=== PATIENT | female | born 1970 | race American Indian/Alaskan Native ===

== ENCOUNTER 2019-06-29 22:05 | Emergency (ER) | payer SELFPAY ==
--- NOTE | 2019-06-29 22:28 | Event Note ---
ED Screening Note Date of service: 06/29/19 Time: 22:24 ED Screening Note: 49 y o female presents with left flank pain and chest pain x 2 hours ago denies f/dysuria/v/diar This initial assessment/diagnostic orders/clinical plan/treatment(s) is/are subject to change based on patients health status, clinical progression and re- assessment by fellow clinical providers in the ED. Further treatment and workup at subsequent clinical providers discretion. Patient/guardian urged not to elope from the ED as their condition may be serious if not clinically assessed and managed. Initial orders include: ua, cbc,bmp, ct abd
[2019-06-29] MEDS ORDERED: MORPHINE IV ONE ×2 (22:54→23:30)
[2019-06-29] MEDS ORDERED: ZOFRAN IV ONE ×2 (22:54→23:30)
[2019-06-29 23:08] LABS: Alanine Aminotransferase 20 units/L (7-56); Albumin 3.5 g/dL (3.9-5); BUN/Creatinine Ratio 12; Blood Urea Nitrogen 12 mg/dL (7-17); Hemolysis Index 2
[2019-06-29] MEDS ORDERED: PEPCID IV ONE (23:30)
[2019-06-29] MEDS ORDERED: ALUM-MAG HYDROX-SIMETH 200-200-20MG/5ML PO ONE (23:30)
--- NOTE | 2019-06-29 23:34 | Emergency Department Report ---
ED Abdominal Pain HPI - General Chief Complaint: Chest Pain Stated Complaint: CHEST AND BACK PAIN Time Seen by Provider: 06/29/19 22:24 Source: patient Mode of arrival: Ambulatory Limitations: No Limitations - History of Present Illness Initial Comments: Mrs. Allred is a 49-year-old female with history of severe obesity who presents with epigastric left flank pain gradual onset 7 PM. SHe has vomiting and diarrhea. She is concerned for foodpoisoning after eating and a local buffet today. She also had transient nondescript chest pain which has resolved. She denies shortness of breath. No other sick contacts. No other contacts with sim ilar symptoms. No history of hypertension, diabetes mellitus, dyslipidemia, tobacco abuse. No family history of heart disease. MD Complaint: abdominal pain -: Gradual, hour(s) (4) Location: diffuse, epigastric, L flank Severity scale (0 -10): 10 Quality: burning Consistency: constant Improves With: nothing Worsens With: nothing Context: possible food poisoning Associated Symptoms: nausea, vomiting, diarrhea - Related Data Previous Rx's Medication Instructions Recorded Last Taken Type Ibuprofen [Motrin 800 MG tab] 800 mg PO Q8HR PRN #15 tablet 06/30/19 Unknown Rx Tamsulosin [Flomax] 0.4 mg PO QDAY #5 cap 06/30/19 Unknown Rx oxyCODONE /ACETAMINOPHEN [Percocet 1 tab PO Q6HR PRN #10 tablet 06/30/19 Unknown Rx 5/325] Allergies Allergy/AdvReac Type Severity Reaction Status Date / Time No Known Allergies Allergy Unverified 06/29/19 22:11 ED Review of Systems ROS: Stated complaint: CHEST AND BACK PAIN Other details as noted in HPI Comment: All other systems reviewed and negative Constitutional: denies: fever, malaise Cardiovascular: chest pain Gastrointestinal: abdominal pain, nausea, vomiting, diarrhea ED Past Medical Hx - Past Medical History Previous Medical History?: Yes Additional medical history: Morbid obesity - Surgical History Past Surgical History?: Yes Hx Appendectomy: Yes (September 2018) - Social History Smoking Status: Never Smoker Substance Use Type: None - Medications Home Medications: Home Medications Medication Instructions Recorded Confirmed Last Taken Type Ibuprofen [Motrin 800 MG tab] 800 mg PO Q8HR PRN #15 tablet 06/30/19 Unknown Rx Tamsulosin [Flomax] 0.4 mg PO QDAY #5 cap 06/30/19 Unknown Rx oxyCODONE /ACETAMINOPHEN [Percocet 1 tab PO Q6HR PRN #10 tablet 06/30/19 Unknown Rx 5/325] ED Physical Exam - General Limitations: No Limitations General appearance: alert, other (appears in severe pain with active vomiting) - Head Head exam: Present: atraumatic, normocephalic - Eye Eye exam: Present: normal appearance - ENT ENT exam: Present: mucous membranes moist - Neck Neck exam: Present: normal inspection, full ROM - Respiratory Respiratory exam: Present: normal lung sounds bilaterally. Absent: respiratory distress, wheezes, rales, rhonchi - Cardiovascular Cardiovascular Exam: Present: regular rate, normal rhythm, normal heart sounds. Absent: systolic murmur, diastolic murmur, rubs, gallop - GI/Abdominal GI/Abdominal exam: Present: soft, normal bowel sounds. Absent: distended, tenderness, guarding, rebound - Extremities Exam Extremities exam: Present: normal inspection - Back Exam Back exam: Present: normal inspection - Neurological Exam Neurological exam: Present: alert, oriented X3 - Psychiatric Psychiatric exam: Present: normal affect, normal mood - Skin Skin exam: Present: warm, dry, intact, normal color. Absent: rash ED Course Vital Signs 06/29/19 06/29/19 06/29/19 22:11 22:25 22:54 Temperature 98 F Pulse Rate 74 74 Respiratory 20 20 19 Rate Blood Pressure 178/96 Blood Pressure 178/96 [Left] O2 Sat by Pulse 100 100 98 Oximetry 06/29/19 23:27 Temperature 98.1 F Pulse Rate 72 Respiratory 19 Rate Blood Pressure Blood Pressure 158/86 [Left] O2 Sat by Pulse 98 Oximetry ED Medical Decision Making - Lab Data Result diagrams: 06/29/19 22:31 06/29/19 22:31 - Radiology Data Radiology results: report reviewed 2 mm left distal ureteral calculus according to CT radiology report - Medical Decision Making Medicine and presents with severe pain left flank due to 2 mm distal ureteral calculus. Pain controlled with multiple doses of analgesia. She also received IV antiemetic and IV fluid. I provided extensive verbal and written education regarding kidney stones. This is patient's first instance of renal colic. She is otherwise in good health. No indication of infection. No signs of SIRS/Sepsis. I have prescribed Percocet, ibuprofen, Flomax. She was provided urine strainer. Referred to urologist for f/u. Critical care attestation.: If time is entered above; I have spent that time in minutes in the direct care of this critically ill patient, excluding procedure time. ED Disposition Clinical Impression: Kidney stone on left side, Renal colic on left side, Acute flank pain Disposition: TO HOME OR SELFCARE Is pt being admited?: No Does the pt Need Aspirin: No Condition: Stable Instructions: Kidney Stones (ED) Prescriptions: Tamsulosin [Flomax] 0.4 mg PO QDAY #5 cap Ibuprofen [Motrin 800 MG tab] 800 mg PO Q8HR PRN #15 tablet PRN Reason: Pain , Severe (7-10) oxyCODONE /ACETAMINOPHEN [Percocet 5/325] 1 tab PO Q6HR PRN #10 tablet PRN Reason: Pain Referrals: WILL LOCKE MD [Staff Physician] - 3-5 Days
--- NOTE | 2019-06-29 23:55 | Cat Scan Report ---
CT ABDOMEN AND PELVIS WITHOUT CONTRAST INDICATION: lft flank abd pain CONTRAST: Without IV COMPARISON: None available. All CT scans at this location are performed using CT dose reduction for ALARA by means of automated e xposure control. NOTE: Resolution is decreased and artifact is introduced by the patient's size. FINDINGS: Mild bibasilar atelectatic changes are seen without obvious consolidation. Coronary artery calcifications are noted. No pneumoperitoneum is seen. Midline abdominal wall laxity is seen with mil d fatty herniation at the umbilicus. Appendix appears to have been removed. Fatty infiltration of the liver seen with hepatomegaly. Spleen appears within normal limits. Large gallstones are seen in a co ntracted gallbladder without obvious acute inflammation. No biliary dilatation is seen. Pancreas appe ars within normal limits. No renal calculi are seen. The left renal collecting system and ureter are mildly dilated. The ureter is mildly prominent to just above the ureterovesical junction where a 2 mm calculus is located. Urinary bladder shows no significant abnormalities. Probably are small uterine leiomyomata in the fundal region. Small left ovarian cyst probably is functional. No free fluid is se en. IMPRESSION: Mildly obstructing distal left ureteral calculus Signer Name: Zak Jacobsen MD Signed: 06/29/2019 11:50 PM Workstation Name: [id number]
[2019-06-30 00:25] LABS: Basophils % (Auto) 0.3 % (0.0-1.8); Eosinophils # (Auto) 0.1 K/mm3 (0.0-0.4); Eosinophils % (Auto) 1.1 % (0.0-4.3); Hematocrit 29.6 % (30.3-42.9); Hemoglobin 9.2 gm/dl (10.1-14.3); Lymphocytes # (Auto) 1.4 K/mm3 (1.2-5.4); Mean Corpuscular HGB Conc 31 % (30-34); Monocytes # (Auto) 0.4 K/mm3 (0.0-0.8); Platelet Count 329 K/mm3 (140-440); Red Blood Count 4.71 M/mm3 (3.65-5.03)
[2019-06-30 00:26] LABS: Mean Corpuscular Volume 63 fl (79-97); Red Cell Distribution Width 21.6 % (13.2-15.2)
[2019-06-30] MEDS ORDERED: NACL 0.9% 1000 ML 1,000 ML IV ONE (00:40)
[2019-06-30] MEDS ORDERED: TORADOL IV ONE (00:40)
[2019-06-30] MEDS ORDERED: FLOMAX PO ONE (00:45)
[2019-06-30 03:47] VITALS: BP 152/85
== END 2019-06-30 03:44 | disposition home or self-care (01) ==
LOC: ED 22:05
DX: N20.0 Calculus of kidney (principal); R11.2 Nausea with vomiting, unspecified; E66.01 Morbid (severe) obesity due to excess calories; Z68.43 Body mass index [BMI] 50.0-59.9, adult; Z90.49 Acquired absence of other specified parts of digestive tract; Z79.899 Other long term (current) drug therapy; Z79.1 Long term (current) use of non-steroidal anti-inflammatories (NSAID)
CPT/HCPCS: 36415; 74176; 80053; 84703; 85025; 93005; 93010; 96361; 96374; 96375; 96376; 99284; J1885; J2270; J2405; J7030

== ENCOUNTER 2019-07-01 13:48 | Inpatient (IN) | payer OTHER ==
--- NOTE | 2019-07-01 13:57 | Emergency Department Report ---
Blank Doc - Documentation Documentation: 49-year-old female that presents with fever with abdmonmial pain and n/v. This initial assessment/diagnostic orders/clinical plan/treatment(s) is/are subject to change based on patient's health status, clinical progression and re- assessment by fellow clinical providers in the ED. Further treatment and workup at subsequent clinical providers discretion. Patient/guardians urged not to elope from the ED as their condition may be serious if not clinically assessed and managed. Initial orders include: 1- Patient sent to MAIN for further evaluation and treatment 2- code sepsis initiated 3- labs 4- UA
[2019-07-01] MEDS ORDERED: TYLENOL PO ONE (13:59)
[2019-07-01] MEDS ORDERED: TYLENOL ONE (14:01)
[2019-07-01 14:33] LABS: Basophils % (Auto) 0.3 % (0.0-1.8); Eosinophils % (Auto) 0.1 % (0.0-4.3); Hematocrit 27.7 % (30.3-42.9); Hemoglobin 8.4 gm/dl (10.1-14.3); Lymphocytes # (Auto) 1.3 K/mm3 (1.2-5.4); Lymphocytes % (Auto) 9.8 % (13.4-35.0); Mean Corpuscular HGB Conc 30 % (30-34); Monocytes % (Auto) 7.8 % (0.0-7.3); Platelet Count 271 K/mm3 (140-440); Red Blood Count 4.31 M/mm3 (3.65-5.03)
[2019-07-01 14:43] LABS: Mean Corpuscular Volume 64 fl (79-97); Red Cell Distribution Width 21.9 % (13.2-15.2)
[2019-07-01 14:51] LABS: Albumin 3.5 g/dL (3.9-5); Calcium 8.7 mg/dL (8.4-10.2)
--- NOTE | 2019-07-01 15:12 | XRay Report ---
ABDOMINAL SERIES WITH CHEST X-RAY HISTORY: Abdominal pain for 3 days FINDINGS: Supine and upright views the abdomen demonstrate a normal bowel gas pattern. No evidence fo r dilated bowel, fluid levels or free air. No pathologic calcifications. Single view of the chest is within normal limits. IMPRESSION: Unremarkable abdominal series. Signer Name: Lamont Alexis Jr, MD Signed: 07/01/2019 3:07 PM Workstation Name: [id number]
--- NOTE | 2019-07-01 18:28 | Cat Scan Report ---
CT abdomen pelvis wo con INDICATION / CLINICAL INFORMATION: fever hx of ureteral calculus. Left flank pain TECHNIQUE: Routine CT of the abdomen and pelvis without IV contrast All CT scans at this location are performed using CT dose reduction for ALARA by means of automated exposure control. COMPARISON: None available. FINDINGS: Abdomen and pelvis: Previously seen stone within the distal left ureter is no longer identified withi n the ureter and may have passed. There is persistent mild left hydroureteronephrosis is some perinep hric stranding of the left kidney. The liver, spleen pancreas adrenal glands and right kidney are unchanged. Gallstones again noted. The uterus is unremarkable. There is a 2.1 cm cyst arising from the left ovary. IMPRESSION: Previously seen small stone within the distal left ureter is no longer identified compare d to 06/29/2019. There is some persistent inflammation/stranding involving the left ureter and the left kidney. If there is any clinical concern for pyelonephritis a CT of the abdomen and pelvis with IV c ontrast is suggested for further evaluation as upon nephritis cannot be excluded on a noncontrast mukund botello Signer Name: Kuldeep Parra MD Signed: 07/01/2019 6:24 PM Workstation Name: [id number]
[2019-07-01] MEDS ORDERED: MORPHINE IV ONE ×2 (18:39→20:00)
[2019-07-01] MEDS ORDERED: ZOFRAN IV ONE (18:39)
[2019-07-01] MEDS: MAXIPIME/NS 2 GM/100 ML 2 GM/100 ML BAG IV SCH (19:29)
[2019-07-01] MEDS ORDERED: TORADOL ONE (19:57)
[2019-07-01] MEDS ORDERED: TORADOL IV ONE (20:00)
[2019-07-01 20:13] LABS: Bacteria,Urine 1+ /HPF (Negative); Bilirubin,Urine NEG (Negative); Blood,Urine SM (Negative); Color,Urine Yellow (Yellow); Mucus,Urine FEW /HPF; Urobilinogen,Urine < 2.0 mg/dL (<2.0)
[2019-07-01] MEDS ORDERED: SODIUM CHLORIDE FLUSH SYRINGE 10 ML IV PRN (20:35)
[2019-07-01] MEDS: SODIUM CHLORIDE FLUSH SYRINGE 10 ML IV SCH (22:05)
[2019-07-01] MEDS: NACL 0.9% 1000 ML 1,000 ML IV SCH (22:05)
[2019-07-01] MEDS: MORPHINE IV PRN (23:11)
--- NOTE | 2019-07-02 00:08 | Emergency Department Report ---
ED Fever HPI - General Chief Complaint: Abdominal Pain Stated Complaint: NAUSEA/VOMITING Time Seen by Provider: 07/01/19 13:56 Source: patient, old records Exam Limitations: no limitations - History of Present Illness Initial Comments: Mrs. Allred is a healthy 49-year-old female who presents with fever and left flank pain. I evaluated Mrs. Allred 2 days prior on Monday night. At that time she was diagnosed with a 2 mm distal ureteral calculus. First episode of renal colic per patient. Fever began last night. She now has fever and chills. She just does not feel well. Timing/Duration: other (1 day) Fever Severity/Quality: subjective Associated Symptoms: weakness (generalized weakness), other (fever left flank pain) ED Review of Systems ROS: Stated complaint: NAUSEA/VOMITING Other details as noted in HPI Comment: All other systems reviewed and negative Constitutional: malaise. denies: fever Gastrointestinal: nausea. denies: abdominal pain Genitourinary: denies: dysuria, frequency, hematuria Musculoskeletal: back pain Neurological: denies: headache ED Past Medical Hx - Past Medical History Hx Congestive Heart Failure: No Hx Diabetes: No Hx Asthma: No Hx COPD: No Additional medical history: Morbid obesity - Surgical History Past Surgical History?: Yes Hx Appendectomy: Yes (September 2018) - Social History Smoking Status: Never Smoker - Medications Home Medications: Home Medications Medication Instructions Recorded Confirmed Last Taken Type No Known Home Medications [No 07/01/19 07/01/19 Unknown History Reported Home Medications] ED Physical Exam - General Limitations: No Limitations General appearance: alert, in no apparent distress, other (appears ill appears uncomfortable) - Head Head exam: Present: atraumatic, normocephalic - Eye Eye exam: Present: normal appearance - ENT ENT exam: Present: mucous membranes moist - Neck Neck exam: Present: normal inspection, full ROM - Respiratory Respiratory exam: Present: normal lung sounds bilaterally. Absent: respiratory distress, wheezes, rales, rhonchi - Cardiovascular Cardiovascular Exam: Present: normal rhythm, tachycardia, normal heart sounds. Absent: systolic murmur, diastolic murmur, rubs, gallop - GI/Abdominal GI/Abdominal exam: Present: soft, normal bowel sounds. Absent: distended, tenderness, guarding, rebound - Extremities Exam Extremities exam: Present: normal inspection - Back Exam Back exam: Present: normal inspection - Neurological Exam Neurological exam: Present: alert, oriented X3 - Psychiatric Psychiatric exam: Present: normal affect, normal mood - Skin Skin exam: Present: warm, dry, intact, normal color. Absent: rash ED Course Vital Signs 07/01/19 07/01/19 07/01/19 13:57 14:00 15:00 Temperature 102.7 F H Pulse Rate 114 H Respiratory 22 18 18 Rate Blood Pressure 126/75 Blood Pressure [Right] O2 Sat by Pulse 99 Oximetry 07/01/19 07/01/19 07/01/19 16:51 19:59 20:53 Temperature 991 F H 97.6 F Pulse Rate 109 H 101 H Respiratory 22 18 19 Rate Blood Pressure 114/63 Blood Pressure 101/61 [Right] O2 Sat by Pulse 99 99 Oximetry ED Medical Decision Making - Lab Data Result diagrams: 07/01/19 14:03 07/01/19 14:03 Laboratory Results - last 24 hr 07/01/19 07/01/19 07/01/19 14:03 14:03 14:03 WBC 13.5 H RBC 4.31 Hgb 8.4 L Hct 27.7 L MCV 64 L MCH 19 L MCHC 30 RDW 21.9 H Plt Count 271 Lymph % (Auto) 9.8 L [place] % (Auto) 7.8 H Eos % (Auto) 0.1 Baso % (Auto) 0.3 Lymph # 1.3 [place] # 1.0 H Eos # 0.0 Baso # 0.0 Seg Neutrophils % 82.0 H Seg Neutrophils # 11.1 H Sodium 137 Potassium 3.9 Chloride 101.0 Carbon Dioxide 22 Anion Gap 18 BUN 10 Creatinine 1.2 Estimated GFR 58 BUN/Creatinine Ratio 8 Glucose 116 H Lactic Acid 1.30 Calcium 8.7 Total Bilirubin 0.40 AST 20 ALT 26 Alkaline Phosphatase 116 Total Protein 7.5 Albumin 3.5 L Albumin/Globulin Ratio 0.9 Lipase HCG, Qual Urine Color Urine Turbidity Urine pH Ur Specific [place] Urine Protein Urine Glucose (UA) Urine Ketones Urine Blood Urine Nitrite Urine Bilirubin Urine Urobilinogen Ur Leukocyte Esterase Urine WBC (Auto) Urine RBC (Auto) U Epithel Cells (Auto) Urine Bacteria (Auto) Urine Mucus 07/01/19 07/01/19 07/01/19 14:03 14:03 16:36 WBC RBC Hgb Hct MCV MCH MCHC RDW Plt Count Lymph % (Auto) [place] % (Auto) Eos % (Auto) Baso % (Auto) Lymph # [place] # Eos # Baso # Seg Neutrophils % Seg Neutrophils # Sodium Potassium Chloride Carbon Dioxide Anion Gap BUN Creatinine Estimated GFR BUN/Creatinine Ratio Glucose Lactic Acid 0.80 Calcium Total Bilirubin AST ALT Alkaline Phosphatase Total Protein Albumin Albumin/Globulin Ratio Lipase 17 HCG, Qual Negative Urine Color Urine Turbidity Urine pH Ur Specific [place] Urine Protein Urine Glucose (UA) Urine Ketones Urine Blood Urine Nitrite Urine Bilirubin Urine Urobilinogen Ur Leukocyte Esterase Urine WBC (Auto) Urine RBC (Auto) U Epithel Cells (Auto) Urine Bacteria (Auto) Urine Mucus 07/01/19 07/01/19 19:34 19:51 WBC RBC Hgb Hct MCV MCH MCHC RDW Plt Count Lymph % (Auto) [place] % (Auto) Eos % (Auto) Baso % (Auto) Lymph # [place] # Eos # Baso # Seg Neutrophils % Seg Neutrophils # Sodium Potassium Chloride Carbon Dioxide Anion Gap BUN Creatinine Estimated GFR BUN/Creatinine Ratio Glucose Lactic Acid 1.10 Calcium Total Bilirubin AST ALT Alkaline Phosphatase Total Protein Albumin Albumin/Globulin Ratio Lipase HCG, Qual Urine Color Yellow Urine Turbidity Slightly-cloudy Urine pH 6.0 Ur Specific [place] 1.013 Urine Protein 30 mg/dl Urine Glucose (UA) Neg Urine Ketones Tr Urine Blood Sm Urine Nitrite Pos Urine Bilirubin Neg Urine Urobilinogen < 2.0 Ur Leukocyte Esterase Sm Urine WBC (Auto) 20.0 H Urine RBC (Auto) 6.0 U Epithel Cells (Auto) 1.0 Urine Bacteria (Auto) 1+ Urine Mucus Few - Radiology Data Radiology results: report reviewed CT abdomen and pelvis according to radiology impression: Previously seen small stone within the distal ureter is no longer identified, there is persistent mild inflammation stranding in the left ureter and kidney, - Medical Decision Making Mrs. Allred presents with acute pyelonephritis caused by a recently passed kidney stone. She will need IV antibiotics and supportive therapy. Admitted to the hospital service in stable condition. Critical care attestation.: If time is entered above; I have spent that time in minutes in the direct care of this critically ill patient, excluding procedure time. ED Disposition Clinical Impression: Acute pyelonephritis Disposition: OP ADMIT IP TO THIS HOSP Is pt being admited?: Yes Does the pt Need Aspirin: No Condition: Stable
[2019-07-02] MEDS: MAXIPIME/NS 2 GM/100 ML 2 GM/100 ML BAG IV SCH ×3 (01:45→21:25)
[2019-07-02] MEDS: ZOFRAN IV PRN ×2 (03:28→11:29)
[2019-07-02] MEDS: MORPHINE IV PRN ×2 (03:28→09:42)
[2019-07-02] MEDS: NACL 0.9% 1000 ML 1,000 ML IV SCH ×2 (06:06→17:14)
[2019-07-02] MEDS: SODIUM CHLORIDE FLUSH SYRINGE 10 ML IV SCH ×2 (09:43→21:26)
[2019-07-02] MEDS: MIRALAX 3350 PO PRN (14:51)
--- NOTE | 2019-07-02 17:06 | Event Note ---
Date: 07/02/19 Patient admitted with acute pyelonephritis. I have seen and examined her. Continue iv Antibiotoics..
[2019-07-02] MEDS: TYLENOL PO PRN (17:13)
[2019-07-03] MEDS: MORPHINE IV PRN ×4 (00:24→17:41)
[2019-07-03] MEDS: TYLENOL PO PRN ×2 (00:25→05:51)
[2019-07-03 05:37] LABS: Mean Corpuscular HGB Conc 31 % (30-34); Platelet Count 237 K/mm3 (140-440); Red Blood Count 4.09 M/mm3 (3.65-5.03)
[2019-07-03 05:38] LABS: Mean Corpuscular Volume 64 fl (79-97); Red Cell Distribution Width 21.6 % (13.2-15.2)
[2019-07-03 05:49] LABS: BUN/Creatinine Ratio 9; Blood Urea Nitrogen 9 mg/dL (7-17); Calcium 8.5 mg/dL (8.4-10.2); Hemolysis Index 1
[2019-07-03] MEDS: SODIUM CHLORIDE FLUSH SYRINGE 10 ML IV SCH ×2 (10:37→22:47)
[2019-07-03] MEDS: MAXIPIME/NS 2 GM/100 ML 2 GM/100 ML BAG IV SCH ×2 (10:37→22:45)
[2019-07-03] MEDS: MIRALAX 3350 PO PRN (10:37)
[2019-07-03] MEDS: ZOFRAN IV PRN (12:29)
--- NOTE | 2019-07-03 13:46 | Progress Note ---
Assessment and Plan Assessment and plan: Acute pyelonephritis on left. Started on cefepime in ED Urine culture growing Gram neg [place] ID and sensitivity pending consult ID Sepsis due to pyelonephritis blood cultures pending Fever due to sepsis, pyelonephritis Morbid obesity. 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 History Interval history: left flank pain fever nausea and vomiting Hospitalist Physical - Physical exam Narrative exam: Gen: Not in acute distress, Lying in bed, morbidly obese HEENT: Normocephalic, atraumatic Neck: supple, no JVD Heart: S1 and S2 reg, no murmurs, rubs or gallop Lungs: Clear to auscultation, no rhonchi, no wheeze Abd: soft, tender left flank, no rebound tenderness, non distended, normal BS, Ext: No edema, no clubbing, no cyanosis Neuro: Awake, alert, oriented X 3, no focal neurological signs - Constitutional Vitals: Temp Pulse Resp BP Pulse Ox 98.0 F 121 H 20 151/68 90 07/03/19 11:30 07/03/19 11:30 07/03/19 12:29 07/03/19 11:30 07/03/19 11:30 Results - Labs CBC & Chem 7: 07/03/19 04:46 07/03/19 04:46 Labs: Laboratory Last Values WBC 9.0 K/mm3 (4.5-11.0) 07/03/19 04:46 RBC 4.09 M/mm3 (3.65-5.03) 07/03/19 04:46 Hgb 8.0 gm/dl (10.1-14.3) L 07/03/19 04:46 Hct 26.0 % (30.3-42.9) L 07/03/19 04:46 MCV 64 fl (79-97) L 07/03/19 04:46 MCH 20 pg (28-32) L 07/03/19 04:46 MCHC 31 % (30-34) 07/03/19 04:46 RDW 21.6 % (13.2-15.2) H 07/03/19 04:46 Plt Count 237 K/mm3 (140-440) 07/03/19 04:46 Lymph % (Auto) 9.8 % (13.4-35.0) L 07/01/19 14:03 [place] % (Auto) 7.8 % (0.0-7.3) H 07/01/19 14:03 Eos % (Auto) 0.1 % (0.0-4.3) 07/01/19 14:03 Baso % (Auto) 0.3 % (0.0-1.8) 07/01/19 14:03 Lymph # 1.3 K/mm3 (1.2-5.4) 07/01/19 14:03 [place] # 1.0 K/mm3 (0.0-0.8) H 07/01/19 14:03 Eos # 0.0 K/mm3 (0.0-0.4) 07/01/19 14:03 Baso # 0.0 K/mm3 (0.0-0.1) 07/01/19 14:03 Seg Neutrophils % 82.0 % (40.0-70.0) H 07/01/19 14:03 Seg Neutrophils # 11.1 K/mm3 (1.8-7.7) H 07/01/19 14:03 Sodium 139 mmol/L (137-145) 07/03/19 04:46 Potassium 4.4 mmol/L (3.6-5.0) 07/03/19 04:46 Chloride 104.1 mmol/L (98-107) 07/03/19 04:46 Carbon Dioxide 21 mmol/L (22-30) L 07/03/19 04:46 18 mmol/L 07/03/19 04:46 BUN 9 mg/dL (7-17) 07/03/19 04:46 1.0 mg/dL (0.7-1.2) 07/03/19 04:46 Estimated GFR > 60 ml/min 07/03/19 04:46 9 % 07/03/19 04:46 Glucose 120 mg/dL (65-100) H 07/03/19 04:46 Lactic Acid 1.10 mmol/L (0.7-2.0) 07/01/19 19:34 Calcium 8.5 mg/dL (8.4-10.2) 07/03/19 04:46 0.40 mg/dL (0.1-1.2) 07/01/19 14:03 AST 20 units/L (5-40) 07/01/19 14:03 ALT 26 units/L (7-56) 07/01/19 14:03 116 units/L (35-129) 07/01/19 14:03 7.5 g/dL (6.3-8.2) 07/01/19 14:03 3.5 g/dL (3.9-5) L 07/01/19 14:03 0.9 % 07/01/19 14:03 17 units/L (13-60) 07/01/19 14:03 HCG, Qual Negative (Negative) 07/01/19 14:03 Yellow (Yellow) 07/01/19 19:51 Slightly-cloudy (Clear) 07/01/19 19:51 6.0 (5.0-7.0) 07/01/19 19:51 Ur Specific [place] 1.013 (1.003-1.030) 07/01/19 19:51 30 mg/dl mg/dL (Negative) 07/01/19 19:51 Neg mg/dL (Negative) 07/01/19 19:51 Tr mg/dL (Negative) 07/01/19 19:51 Sm (Negative) 07/01/19 19:51 Pos (Negative) 07/01/19 19:51 Neg (Negative) 07/01/19 19:51 < 2.0 mg/dL (<2.0) 07/01/19 19:51 Ur Leukocyte Esterase Sm (Negative) 07/01/19 19:51 20.0 /HPF (0.0-6.0) H 07/01/19 19:51 6.0 /HPF (0.0-6.0) 07/01/19 19:51 U Epithel Cells (Auto) 1.0 /HPF (0-13.0) 07/01/19 19:51 1+ /HPF (Negative) 07/01/19 19:51 Few /HPF 07/01/19 19:51 Active Medications - Current Medications Current Medications: Generic Name Dose Route Start Last Admin Trade Name Freq PRN Reason Stop Dose Admin Acetaminophen 650 mg 07/01/19 20:35 07/03/19 05:51 Tylenol PO 650 mg Q4H PRN Administration Pain MILD(1-3)/Fever >100.5/POWELL Cefepime HCl 2 gm in 100 mls @ 200 mls/hr 07/01/19 17:29 07/03/19 10:37 Maxipime/Ns 2 Gm/100 Ml IV 200 mls/hr Q12HR MITCHEL Administration Protocol Sodium Chloride 1,000 mls @ 125 mls/hr 07/01/19 22:00 07/02/19 17:14 Nacl 0.9% 1000 Ml IV 125 mls/hr DIRECT MITCHEL Administration Morphine Sulfate 2 mg 07/01/19 21:31 07/03/19 12:29 Morphine IV 2 mg Q3H PRN Administration Pain, Moderate (4-6) Ondansetron HCl 4 mg 07/01/19 20:35 07/03/19 12:29 Zofran IV 4 mg Q8H PRN Administration Nausea And Vomiting Polyethylene Glycol 17 gm 07/02/19 14:44 07/03/19 10:37 Miralax 3350 PO 17 gm QDAY PRN Administration Constipation Sodium Chloride 10 ml 07/01/19 22:00 07/03/19 10:37 Sodium Chloride Flush Syringe 10 Ml IV 10 ml BID MITCHEL Administration Sodium Chloride 10 ml 07/01/19 20:35 Sodium Chloride Flush Syringe 10 Ml IV PRN PRN LINE FLUSH
--- NOTE | 2019-07-03 14:40 | Progress Note ---
Subjective Date of service: 07/03/19 Interval history: 49 yo F PMHx nephrolithiasis presented to the hospital complaining of fevers and left flank pain. She was recently seen in the hospital on Monday night complaining of flank pain at that time, and was diagnosed with a 2mm distal ureteral kidney stone. She was treated symptomatically at that time. In the interim she has subsequently developed fevers and chills. She otherwise denies nausea/vomiting as per previously, and denies any other complaints. Her urinalys is was indicative of a possible UA. Febrile on admission to 103 and tachycardic. White count was elevated on admission but has since returned to normal. Currently receiving cefepime. Urine cultures with GNR, blood culture NGTD. Imaging personally reviewed: 07/01 CTAP. Previously seen stone gone. Inflammation with possible pyelonephritis. Review of Systems: Bold if positive, otherwise negative General: fevers, chills, rigors HEENT: visual disturbance, diplopia, eye pain Respiratory: cough, sputum, hemoptysis, shortness of breath Cardiovascular: chest pain, syncope Gastrointestinal: nausea, vomiting, diarrhea, abdominal pain Genitourinary: dysuria, hematuria, flank pain Musculoskeletal: neck pain, back pain, joint pain, edema Neurologic: headaches, seizures Hematologic: easy bruising or bleeding Endocrine: night sweats, acute weight loss Skin: rash, jaundice, redness Psychiatric: suicidal, homicidal ideation Objective - Constitutional Vitals: Vital Signs Temp Pulse Resp BP Pulse Ox 98.0 F 121 H 20 151/68 90 07/03/19 11:30 07/03/19 11:30 07/03/19 12:29 07/03/19 11:30 07/03/19 11:30 Temperature -Last 24 Hours Temperature 98.0 F Temperature 97.8 F Temperature 98.0 F Temperature 102.0 F Temperature 103.0 F - Labs CBC & Chem 7: 07/03/19 04:46 07/03/19 04:46 Labs: Abnormal lab results 07/03/19 07/03/19 Range/Units 04:46 04:46 Hgb 8.0 L (10.1-14.3) gm/dl Hct 26.0 L (30.3-42.9) % MCV 64 L (79-97) fl MCH 20 L (28-32) pg RDW 21.6 H (13.2-15.2) % Carbon Dioxide 21 L (22-30) mmol/L Glucose 120 H (65-100) mg/dL
--- NOTE | 2019-07-03 14:57 | Consultation ---
History of Present Illness - Reason for Consult Consult date: 07/03/19 - History of Present Illness 49 yo F PMHx nephrolithiasis presented to the hospital complaining of fevers and left flank pain. She was recently seen in the hospital on Monday night complaining of flank pain at that time, and was diagnosed with a 2mm distal ureteral kidney stone. She was treated symptomatically at that time. In the interim she has subsequently developed fevers and chills. She otherwise denies nausea/vomiting as per previously, and denies any other complaints. Her urinalysis was indicative of a possible UA. Febrile on admission to 103 and tachycardic. White count was elevated on admission but has since returned to normal. Currently receiving cefepime. Urine cultures with GNR, blood culture NGTD. Imaging personally reviewed: 07/01 CTAP. Previously seen stone gone. Inflammation with possible pyelonephritis. Review of Systems: Bold if positive, otherwise negative General: fevers, chills, rigors HEENT: visual disturbance, diplopia, eye pain Respiratory: cough, sputum, hemoptysis, shortness of breath Cardiovascular: chest pain, syncope Gastrointestinal: nausea, vomiting, diarrhea, abdominal pain Genitourinary: dysuria, hematuria, flank pain Musculoskeletal: neck pain, back pain, joint pain, edema Neurologic: headaches, seizures Hematologic: easy bruising or bleeding Endocrine: night sweats, acute weight loss Skin: rash, jaundice, redness Psychiatric: suicidal, homicidal ideation Past History Past Medical History: No medical history Past Surgical History: No surgical history Social history: denies: smoking, alcohol abuse Family history: hypertension Medications and Allergies Allergies Allergy/AdvReac Type Severity Reaction Status Date / Time No Known Allergies Allergy Unverified 06/29/19 22:11 Home Medications Medication Instructions Recorded Confirmed Last Taken Type No Known Home Medications [No 07/01/19 07/01/19 Unknown History Reported Home Medications] Active Meds: Active Medications Acetaminophen (Tylenol) 650 mg PO Q4H PRN PRN Reason: Pain MILD(1-3)/Fever >100.5/POWELL Last Admin: 07/03/19 05:51 Dose: 650 mg Documented by: Cefepime HCl (Maxipime/Ns 2 Gm/100 Ml) 2 gm in 100 mls @ 200 mls/hr IV Q12HR [facility]; Protocol Last Admin: 07/03/19 10:37 Dose: 200 mls/hr Documented by: Sodium Chloride (Nacl 0.9% 1000 Ml) 1,000 mls @ 125 mls/hr IV DIRECT MITCHEL Last Admin: 07/02/19 17:14 Dose: 125 mls/hr Documented by: Morphine Sulfate (Morphine) 2 mg IV Q3H PRN PRN Reason: Pain, Moderate (4-6) Last Admin: 07/03/19 12:29 Dose: 2 mg Documented by: Ondansetron HCl (Zofran) 4 mg IV Q8H PRN PRN Reason: Nausea And Vomiting Last Admin: 07/03/19 12:29 Dose: 4 mg Documented by: Polyethylene Glycol (Miralax [id number]) 17 gm PO QDAY PRN PRN Reason: Constipation Last Admin: 07/03/19 10:37 Dose: 17 gm Documented by: Sodium Chloride (Sodium Chloride Flush Syringe 10 Ml) 10 ml IV BID MITCHEL Last Admin: 07/03/19 10:37 Dose: 10 ml Documented by: Sodium Chloride (Sodium Chloride Flush Syringe 10 Ml) 10 ml IV PRN PRN PRN Reason: LINE FLUSH Physical Examination - Physical Exam Narrative exam: Constitutional: Alert, cooperative. No acute distress Head, Ears, Nose: Normocephalic, atraumatic. External ears, nose normal Eyes: Conjunctivae/corneas clear. No icterus. No ptosis. Neck: Supple, no meningeal signs Oral: dentition fair, no thrush Cardiovascular: S1, S2 normal. Respiratory: Good air entry, clear to auscultation bilaterally GI: Soft, non-tender; bowel sounds normal. No peritoneal signs. Musculoskeletal: No pedal edema, no cyanosis. L flank tenderness Skin: No rash or abscess Hem/Lymphatic: No palpable cervical or supraclavicular nodes. No lymphangitis Psych: Mood ok. Affect normal Neurological: Awake, alert, oriented. No gross abnormality - Constitutional Vitals: Vital Signs Temp Pulse Resp BP Pulse Ox 98.0 F 121 H 20 151/68 90 07/03/19 11:30 07/03/19 11:30 07/03/19 12:29 07/03/19 11:30 07/03/19 11:30 Temperature -Last 24 Hours Temperature 98.0 F Temperature 97.8 F Temperature 98.0 F Temperature 102.0 F Temperature 103.0 F Results - Labs CBC & Chem 7: 07/03/19 04:46 07/03/19 04:46 Labs: Abnormal lab results 07/03/19 07/03/19 Range/Units 04:46 04:46 Hgb 8.0 L (10.1-14.3) gm/dl Hct 26.0 L (30.3-42.9) % MCV 64 L (79-97) fl MCH 20 L (28-32) pg RDW 21.6 H (13.2-15.2) % Carbon Dioxide 21 L (22-30) mmol/L Glucose 120 H (65-100) mg/dL Assessment and Plan Cultures: 07/01 UCx - GNR pending finalization A/P: 49 yo F PMHx nephrolithiasis admitted with pyelonephritis 1. Acute sepsis - present on admission with fevers, leukocytosis, and tachycardia. Secondary to pyelonephritis. 2. Pyelonephritis - cultures with GNR pending finalization. Agree with cefepime for now pending culture results. Will likely need IV therapy to go home on. 3. Nephrolithiasis - stone cleared since this weekend, which is good as they can act as a habour for bacteria yielding recurrent infections. No stones seen on CT. Recs: - continue cefepime but increase dose to 2g q8h based on normal renal function - follow up cultures for identification and WILBERTO. Thank you for the consult, we will continue to follow. MD Zev Martin [facility] M: [phone] O: [phone] F: [phone]
[2019-07-03] MEDS: NACL 0.9% 1000 ML 1,000 ML IV SCH (17:40)
[2019-07-04] MEDS: MORPHINE IV PRN ×2 (01:47→22:48)
[2019-07-04] MEDS: SODIUM CHLORIDE FLUSH SYRINGE 10 ML IV SCH ×2 (09:55→22:48)
[2019-07-04] MEDS: ZOFRAN IV PRN ×2 (09:55→18:31)
[2019-07-04] MEDS ORDERED: HEPARIN SUB-Q SCH ×2 (10:00→22:00)
--- NOTE | 2019-07-04 10:30 | XRay Report ---
CHEST 1 VIEW INDICATION: shortness of breath. COMPARISON: None. FINDINGS: Support devices: None. Heart: Mild cardiomegaly. Pulmonary vasculature: Increased with indistinctness of the vessels. The right hilum is prominent due to rotation. Lungs/Pleura: No acute air space or interstitial disease. Additional findings: None. IMPRESSION: 1. Mild cardiomegaly and pulmonary venous hypertension. No pulmonary edema. 2. No pneumonia. Signer Name: Sridhar Payton MD Signed: 07/04/2019 10:25 AM Workstation Name: [id number]
[2019-07-04] MEDS: MAXIPIME/NS 2 GM/100 ML 2 GM/100 ML BAG IV SCH ×3 (11:36→22:45)
[2019-07-04] MEDS ORDERED: LASIX IV ONE (12:00)
--- NOTE | 2019-07-04 12:35 | Progress Note ---
Assessment and Plan Assessment and plan: Acute pyelonephritis on left. Started on cefepime in ED Urine culture growing Gram neg [place] ID and sensitivity pending ID following Sepsis due to pyelonephritis blood cultures pending Fever due to sepsis, pyelonephritis Acute resp failure Started on Oxygen by NV CXR shows increased pulm vasc. Stopped iv fluids. Give Lasix D-dimer high. Get CTA Chest Morbid obesity. 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 History Interval history: left flank pain fever nausea and vomiting Shortness of breath overnight, started on oxygen Hospitalist Physical - Physical exam Narrative exam: Gen: Not in acute distress, Lying in bed, morbidly obese HEENT: Normocephalic, atraumatic Neck: supple, no JVD Heart: S1 and S2 reg, no murmurs, rubs or gallop Lungs: Clear to auscultation, no rhonchi, no wheeze Abd: soft, tender left flank, no rebound tenderness, non distended, normal BS, Ext: No edema, no clubbing, no cyanosis Neuro: Awake, alert, oriented X 3, no focal neurological signs - Constitutional Vitals: Temp Pulse Resp BP Pulse Ox 98.3 F 75 20 139/76 93 07/04/19 06:05 07/04/19 06:05 07/04/19 06:05 07/04/19 06:05 07/04/19 06:05 Results - Labs CBC & Chem 7: 07/03/19 04:46 07/03/19 04:46 Labs: Laboratory Last Values WBC 9.0 K/mm3 (4.5-11.0) 07/03/19 04:46 RBC 4.09 M/mm3 (3.65-5.03) 07/03/19 04:46 Hgb 8.0 gm/dl (10.1-14.3) L 07/03/19 04:46 Hct 26.0 % (30.3-42.9) L 07/03/19 04:46 MCV 64 fl (79-97) L 07/03/19 04:46 MCH 20 pg (28-32) L 07/03/19 04:46 MCHC 31 % (30-34) 07/03/19 04:46 RDW 21.6 % (13.2-15.2) H 07/03/19 04:46 Plt Count 237 K/mm3 (140-440) 07/03/19 04:46 Lymph % (Auto) 9.8 % (13.4-35.0) L 07/01/19 14:03 [place] % (Auto) 7.8 % (0.0-7.3) H 07/01/19 14:03 Eos % (Auto) 0.1 % (0.0-4.3) 07/01/19 14:03 Baso % (Auto) 0.3 % (0.0-1.8) 07/01/19 14:03 Lymph # 1.3 K/mm3 (1.2-5.4) 07/01/19 14:03 [place] # 1.0 K/mm3 (0.0-0.8) H 07/01/19 14:03 Eos # 0.0 K/mm3 (0.0-0.4) 07/01/19 14:03 Baso # 0.0 K/mm3 (0.0-0.1) 07/01/19 14:03 Seg Neutrophils % 82.0 % (40.0-70.0) H 07/01/19 14:03 Seg Neutrophils # 11.1 K/mm3 (1.8-7.7) H 07/01/19 14:03 653.70 ng/mlDDU (0-234) H 07/04/19 11:13 Sodium 139 mmol/L (137-145) 07/03/19 04:46 Potassium 4.4 mmol/L (3.6-5.0) 07/03/19 04:46 Chloride 104.1 mmol/L (98-107) 07/03/19 04:46 Carbon Dioxide 21 mmol/L (22-30) L 07/03/19 04:46 18 mmol/L 07/03/19 04:46 BUN 9 mg/dL (7-17) 07/03/19 04:46 1.0 mg/dL (0.7-1.2) 07/03/19 04:46 Estimated GFR > 60 ml/min 07/03/19 04:46 9 % 07/03/19 04:46 Glucose 120 mg/dL (65-100) H 07/03/19 04:46 Lactic Acid 1.10 mmol/L (0.7-2.0) 07/01/19 19:34 Calcium 8.5 mg/dL (8.4-10.2) 07/03/19 04:46 0.40 mg/dL (0.1-1.2) 07/01/19 14:03 AST 20 units/L (5-40) 07/01/19 14:03 ALT 26 units/L (7-56) 07/01/19 14:03 116 units/L (35-129) 07/01/19 14:03 7.5 g/dL (6.3-8.2) 07/01/19 14:03 3.5 g/dL (3.9-5) L 07/01/19 14:03 0.9 % 07/01/19 14:03 17 units/L (13-60) 07/01/19 14:03 HCG, Qual Negative (Negative) 07/01/19 14:03 Yellow (Yellow) 07/01/19 19:51 Slightly-cloudy (Clear) 07/01/19 19:51 6.0 (5.0-7.0) 07/01/19 19:51 Ur Specific [place] 1.013 (1.003-1.030) 07/01/19 19:51 30 mg/dl mg/dL (Negative) 07/01/19 19:51 Neg mg/dL (Negative) 07/01/19 19:51 Tr mg/dL (Negative) 07/01/19 19:51 Sm (Negative) 07/01/19 19:51 Pos (Negative) 07/01/19 19:51 Neg (Negative) 07/01/19 19:51 < 2.0 mg/dL (<2.0) 07/01/19 19:51 Ur Leukocyte Esterase Sm (Negative) 07/01/19 19:51 20.0 /HPF (0.0-6.0) H 07/01/19 19:51 6.0 /HPF (0.0-6.0) 07/01/19 19:51 U Epithel Cells (Auto) 1.0 /HPF (0-13.0) 07/01/19 19:51 1+ /HPF (Negative) 07/01/19 19:51 Few /HPF 07/01/19 19:51 Active Medications - Current Medications Current Medications: Generic Name Dose Route Start Last Admin Trade Name Freq PRN Reason Stop Dose Admin Acetaminophen 650 mg 07/01/19 20:35 07/03/19 05:51 Tylenol PO 650 mg Q4H PRN Administration Pain MILD(1-3)/Fever >100.5/POWELL Heparin Sodium (Porcine) 5,000 unit 07/04/19 10:00 07/04/19 11:36 Heparin SUB-Q 5,000 unit Q8HR MITCHEL Administration Cefepime HCl 2 gm in 100 mls @ 200 mls/hr 07/01/19 17:29 07/04/19 11:36 Maxipime/Ns 2 Gm/100 Ml IV 200 mls/hr Q12HR MITCHEL Administration Protocol Morphine Sulfate 2 mg 07/01/19 21:31 07/04/19 01:47 Morphine IV 2 mg Q3H PRN Administration Pain, Moderate (4-6) Ondansetron HCl 4 mg 07/01/19 20:35 07/04/19 09:55 Zofran IV 4 mg Q8H PRN Administration Nausea And Vomiting Polyethylene Glycol 17 gm 07/02/19 14:44 07/03/19 10:37 Miralax 3350 PO 17 gm QDAY PRN Administration Constipation Sodium Chloride 10 ml 07/01/19 22:00 07/04/19 09:55 Sodium Chloride Flush Syringe 10 Ml IV 10 ml BID MITCHEL Administration Sodium Chloride 10 ml 07/01/19 20:35 Sodium Chloride Flush Syringe 10 Ml IV PRN PRN LINE FLUSH Nutrition/Malnutrition Assess - Dietary Evaluation Nutrition/Malnutrition Findings: Nutrition Notes Start: 07/04/19 08:12 Freq: Status: Active Protocol: Document 07/04/19 08:12 LP (Rec: 07/04/19 08:14 LP [id number]) Nutrition Notes Initial or Follow up Assessment Height 5 ft 4 in Weight 155 kg Bedias Body Weight (kg) 54.54 BMI 58.6 Subjective/Other Information Wt incorrect in chart. Nutrition Intervention Revisit per MD consult or patient Sign Off request:
[2019-07-04] MEDS ORDERED: MAXIPIME/NS 2 GM/100 ML 2 GM/100 ML BAG IV SCH (14:00)
--- NOTE | 2019-07-04 15:36 | Progress Note ---
Assessment and Plan Cultures: 07/01 UCx - GNR pending finalization A/P: 49 yo F PMHx nephrolithiasis admitted with pyelonephritis 1. Acute sepsis - present on admission with fevers, leukocytosis, and tachycardia. Secondary to pyelonephritis. 2. Pyelonephritis - cultures with GNR pending finalization. Agree with cefepime for now pending culture results. Will likely need IV therapy to go home on. 3. Nephrolithiasis - stone cleared since this weekend, which is good as they can act as a harbour for bacteria yielding recurrent infections. No stones seen on CT. 4. Acute SOB - pending CT chest with contrast. Recs: - continue cefepime but increase dose to 2g q8h based on normal renal function - follow up cultures for identification and WILBERTO. - f/u CT chest Thank you for the consult, we will continue to follow. Nuha Rose MD [facility] M: [phone] O: [phone] F: [phone] Subjective Date of service: 07/04/19 Interval history: Complains of acute SOB. CT chest ordered by primary. Flank pain mildly improved. Colicky. Mild fever to 100.4, white count normal. Objective - Exam Narrative Exam: Constitutional: Alert, cooperative. No acute distress Head, Ears, Nose: Normocephalic, atraumatic. External ears, nose normal Eyes: Conjunctivae/corneas clear. No icterus. No ptosis. Neck: Supple, no meningeal signs Oral: dentition fair, no thrush Cardiovascular: S1, S2 normal. Respiratory: Good air entry, clear to auscultation bilaterally GI: Soft, non-tender; bowel sounds normal. No peritoneal signs. Musculoskeletal: No pedal edema, no cyanosis. L flank tenderness Skin: No rash or abscess Hem/Lymphatic: No palpable cervical or supraclavicular nodes. No lymphangitis Psych: Mood ok. Affect normal Neurological: Awake, alert, oriented. No gross abnormality - Constitutional Vitals: Vital Signs Temp Pulse Resp BP Pulse Ox 98.2 F 103 H 20 157/81 93 07/04/19 13:05 07/04/19 13:05 07/04/19 13:05 07/04/19 13:05 07/04/19 13:05 Temperature -Last 24 Hours Temperature 98.2 F Temperature 98.3 F Temperature 100.4 F Temperature 98.1 F - Labs CBC & Chem 7: 07/03/19 04:46 07/03/19 04:46 Labs: Abnormal lab results 07/04/19 Range/Units 11:13 D-Dimer 653.70 H (0-234) ng/mlDDU
[2019-07-04] MEDS ORDERED: LOVENOX SUB-Q STA ×5 (17:19→18:02)
[2019-07-04] MEDS ORDERED: LOVENOX SUB-Q NR ×2 (18:00)
--- NOTE | 2019-07-04 19:35 | Cat Scan Report ---
CTA CHEST WITH IV CONTRAST INDICATION / CLINICAL INFORMATION: shortness of breath, elevated d-dimer. TECHNIQUE: Axial CT images were obtained through the chest after injection of IV contrast. 3 plane MIP and/or 3D reconstructions were produced. All CT scans at this location are performed using CT dose reduction f or ALARA by means of automated exposure control. COMPARISON: None available. FINDINGS: PULMONARY ARTERIES: No pulmonary emboli. THORACIC AORTA: No significant abnormality. HEART: No significant abnormality. CORONARY ARTERIES: No significant calcification. PLEURA: No pleural effusion. No pneumothorax. LYMPH NODES: No significant adenopathy. LUNGS: Airspace process is present involving a significant portion of the right upper lobe and left l ower lobe and minimum involvement of the posterior aspect left upper lobe ADDITIONAL FINDINGS: None. UPPER ABDOMEN: No acute findings. SKELETAL STRUCTURES: No significant osseous abnormality. IMPRESSION: 1. No CT evidence for pulmonary embolism. 2. Airspace process predominantly right lung most consistent with pneumonia Signer Name: Yoseph Alcaraz MD Signed: 07/04/2019 7:30 PM Workstation Name: [id number]
--- NOTE | 2019-07-04 21:34 | History and Physical Report ---
CHIEF COMPLAINT: Left flank pain. Other complaints include fever, chills, nausea and vomiting. HISTORY OF PRESENTING ILLNESS: The patient is a 49-year-old female who initially presented to the Emergency Room 2 days prior to this recent visit and was diagnosed with left-sided 2 mm ureteral calculus. The patient was sent home on pain medication and came back with complaint of left flank pain, nausea, vomiting, fever and chills and denied history of diarrhea, denied history of headache, shortness of breath or chest pain. The patient also denied history of dizziness. PAST MEDICAL HISTORY: Pertinent for morbid obesity. Also, the patient has past medical history of kidney stones. PAST SURGICAL HISTORY: Pertinent for appendectomy. FAMILY HISTORY: Reviewed and noncontributory. SOCIAL HISTORY: The patient does not smoke, does not drink alcohol and does not use illicit drugs. MEDICATIONS: The patient is not on any medication. ALLERGIES: There are no known drug allergies. REVIEW OF SYSTEMS: CONSTITUTIONAL: Denies fever, denies chills, no diaphoresis. HEENT: There is no headache or sore throat. CARDIOVASCULAR SYSTEM: There is no chest pain or orthopnea. RESPIRATORY SYSTEM: There is no shortness of breath or cough. GASTROINTESTINAL SYSTEM: There is nausea and vomiting. No abdominal pain, diarrhea or constipation. NEUROLOGICAL SYSTEM: There is no numbness, no dizziness, no altered mental status. MUSCULOSKELETAL SYSTEM: There is no joint pain or swelling. DERMATOLOGICAL SYSTEM: There is no skin rash or itching. GENITOURINARY SYSTEM: There is left flank pain, but no hematuria. No dysuria. Rest of system review is normal. PHYSICAL EXAMINATION: GENERAL: At the time of exam, the patient was found to be alert, oriented x 3, morbidly obese, and not in acute distress. VITAL SIGNS: Shows temperature of 102.7 degrees Fahrenheit, pulse of 101.4, respirations 22, blood pressure 126/75, O2 sat of 99% on room air. HEENT: Showed pupils to be equal, round, reactive to light and accommodating. Extraocular muscles are intact. NECK: Supple with no JVD or carotid bruits. CARDIOVASCULAR SYSTEM: Showed normal first and second heart sounds with no gallops or murmurs. RESPIRATORY SYSTEM: Showed good air entry on both sides of the lungs with no abnormal breath sounds. GASTROINTESTINAL SYSTEM: Showed abdomen to be full, soft, nontender with no organomegaly or rigidity. NEUROLOGIC: Showed no focal deficit. MUSCULOSKELETAL SYSTEM: Showed no joint swelling or tenderness. DERMATOLOGICAL SKIN: Showed no skin rash. GENITOURINARY SYSTEM: Showing left costovertebral angle tenderness. PERTINENT LABORATORY AND IMAGING STUDIES: The patient had CBC done that showed elevated white count of 13,500 with low hemoglobin of 8.4 and low hematocrit of 37.7 and normal platelet count of 271,000. The patient's CBC differential showing elevated segmented neutrophil count of 82%. The patient's chemistry showed normal sodium, normal potassium, normal chloride, normal CO2 and normal renal function test. The patient's lactic acid level was unremarkable. test came back negative. The patient's urinalysis showed no evidence of UTI. IMAGING STUDIES: The patient had CT of the abdomen and pelvis done that shows left ureteral stone that was seen 2 days and prior to presentation had been passed, but there were obstruction suggestive of inflammation or possible infection and the radiologist said there is possibly pyelonephritis. DIAGNOSES: 1. Left acute pyelonephritis. 2. Anemia. 3. Sepsis. 4. Morbid obesity. PLAN OF CARE: 1. The patient will be admitted to medical floor. 2. The patient will be on IV normal saline running at 125 mL an hour for maintenance fluid, having received some boluses in the Emergency Room. 3. The patient will be on IV Zosyn 3.375 grams q. 8 hours and will be also on IV Levaquin 750 mg daily. 4. The patient will be on IV morphine 2 mg every 3 hours as needed for pain and IV Zofran 4 mg every 8 hours as needed for nausea and vomiting. 5. The patient will be on Tylenol 650 mg by mouth every 4 hours for fever and headache. 6. The patient's diet will be regular diet. 7. The patient's DVT prophylaxis will be through heparin 5000 units subcutaneous q. 12 hours. JOB# [id number] OCN/NTS ANDREAD
[2019-07-05] MEDS: MAXIPIME/NS 2 GM/100 ML 2 GM/100 ML BAG IV SCH ×3 (05:44→21:57)
[2019-07-05] MEDS: TYLENOL PO PRN (06:02)
[2019-07-05 09:47] LABS: Hematocrit 22.9 % (30.3-42.9); Hemoglobin 7.1 gm/dl (10.1-14.3); Mean Corpuscular HGB Conc 31 % (30-34); Platelet Count 243 K/mm3 (140-440); Red Blood Count 3.64 M/mm3 (3.65-5.03)
[2019-07-05 10:09] LABS: BUN/Creatinine Ratio 11; Blood Urea Nitrogen 10 mg/dL (7-17); Calcium 8.9 mg/dL (8.4-10.2); Hemolysis Index 3
[2019-07-05 10:10] LABS: Mean Corpuscular Volume 63 fl (79-97); Red Cell Distribution Width 21.5 % (13.2-15.2)
[2019-07-05] MEDS ORDERED: LASIX IV ONE (10:30)
[2019-07-05] MEDS: SODIUM CHLORIDE FLUSH SYRINGE 10 ML IV SCH ×2 (11:02→21:59)
--- NOTE | 2019-07-05 13:07 | Consultation ---
History of Present Illness Consult date: 07/05/19 Requesting physician: CHAPARRITA HAND Reason for consult: dyspnea History of present illness: Pt. admitted for UTI. She was receiving IVFs. She developed acute onset worsening SOB and required O2. Symptoms resolved with 1 dose of Lasix and she is now back on RA w/o SOB. No chest pain, wheezing. She snores and wakes up gasping for breath. Active Medications Acetaminophen (Tylenol) 650 mg PO Q4H PRN PRN Reason: Pain MILD(1-3)/Fever >100.5/POWELL Last Admin: 07/05/19 06:02 Dose: 650 mg Documented by: Enoxaparin Sodium (Lovenox) 40 mg SUB-Q QDAY@2200 MITCHEL Last Admin: 07/05/19 21:58 Dose: 40 mg Documented by: Cefepime HCl (Maxipime/Ns 2 Gm/100 Ml) 2 gm in 100 mls @ 200 mls/hr IV Q8HR [facility]; Protocol Last Admin: 07/05/19 21:57 Dose: 200 mls/hr Documented by: Morphine Sulfate (Morphine) 2 mg IV Q3H PRN PRN Reason: Pain, Moderate (4-6) Last Admin: 07/05/19 20:02 Dose: 2 mg Documented by: Ondansetron HCl (Zofran) 4 mg IV Q8H PRN PRN Reason: Nausea And Vomiting Last Admin: 07/04/19 18:31 Dose: 4 mg Documented by: Polyethylene Glycol (Miralax [id number]) 17 gm PO QDAY PRN PRN Reason: Constipation Last Admin: 07/03/19 10:37 Dose: 17 gm Documented by: Sodium Chloride (Sodium Chloride Flush Syringe 10 Ml) 10 ml IV BID [facility] Last Admin: 07/05/19 21:59 Dose: 10 ml Documented by: Sodium Chloride (Sodium Chloride Flush Syringe 10 Ml) 10 ml IV PRN PRN PRN Reason: LINE FLUSH Past History Past Medical History: No medical history Past Surgical History: No surgical history Social history: denies: smoking, alcohol abuse Family history: hypertension Medications and Allergies Allergies Allergy/AdvReac Type Severity Reaction Status Date / Time No Known Allergies Allergy Unverified 06/29/19 22:11 Home Medications Medication Instructions Recorded Confirmed Last Taken Type No Known Home Medications [No 07/01/19 07/01/19 Unknown History Reported Home Medications] Active Meds: Active Medications Acetaminophen (Tylenol) 650 mg PO Q4H PRN PRN Reason: Pain MILD(1-3)/Fever >100.5/POWELL Last Admin: 07/05/19 06:02 Dose: 650 mg Documented by: Enoxaparin Sodium (Lovenox) 40 mg SUB-Q QDAY@2200 MITCHEL Cefepime HCl (Maxipime/Ns 2 Gm/100 Ml) 2 gm in 100 mls @ 200 mls/hr IV Q8HR [facility]; Protocol Last Admin: 07/05/19 05:44 Dose: 200 mls/hr Documented by: Morphine Sulfate (Morphine) 2 mg IV Q3H PRN PRN Reason: Pain, Moderate (4-6) Last Admin: 07/04/19 22:48 Dose: 2 mg Documented by: Ondansetron HCl (Zofran) 4 mg IV Q8H PRN PRN Reason: Nausea And Vomiting Last Admin: 07/04/19 18:31 Dose: 4 mg Documented by: Polyethylene Glycol (Miralax [id number]) 17 gm PO QDAY PRN PRN Reason: Constipation Last Admin: 07/03/19 10:37 Dose: 17 gm Documented by: Sodium Chloride (Sodium Chloride Flush Syringe 10 Ml) 10 ml IV BID MITCHEL Last Admin: 07/05/19 11:02 Dose: 10 ml Documented by: Sodium Chloride (Sodium Chloride Flush Syringe 10 Ml) 10 ml IV PRN PRN PRN Reason: LINE FLUSH Review of Systems All systems: negative Physical Examination Vital signs: Vital Signs Temp Pulse Resp BP Pulse Ox 102.7 F H 114 H 22 126/75 99 07/01/19 13:57 07/01/19 13:57 07/01/19 13:57 07/01/19 13:57 07/01/19 13:57 Vital Signs - 24 hr 07/04/19 07/04/19 07/05/19 17:06 23:11 06:02 Temperature 100.7 F H 98.5 F 98.1 F Pulse Rate 106 H 99 H 88 Respiratory 20 18 18 Rate Blood Pressure 129/68 119/69 142/72 O2 Sat by Pulse 93 94 96 Oximetry 07/05/19 10:58 Temperature 97.4 F L Pulse Rate 98 H Respiratory 50 H Rate Blood Pressure 124/71 O2 Sat by Pulse 97 Oximetry General appearance: no acute distress, alert Eyes: non-icteric Neck: supple Effort: normal Ascultation: Bilateral: diminished breath sounds Cardiovascular: regular rate and rhythm (no mrg) Gastrointestinal: normoactive bowel sounds, soft, non-tender, non-distended Integumentary: normal Extremities: no cyanosis, pink and warm, edema (1+ bilateral LE edema) normal mental status, non-focal exam, pupils equal and round mood appropriate, affect normal Results - Laboratory Findings CBC and BMP: 07/05/19 09:25 07/05/19 09:25 PT/INR, D-dimer 653.70 ng/mlDDU (0-234) H 07/04/19 11:13 Abnormal lab findings: Abnormal Labs 07/01/19 07/01/19 07/01/19 14:03 14:03 19:51 WBC 13.5 H RBC Hgb 8.4 L Hct 27.7 L MCV 64 L MCH 19 L RDW 21.9 H Lymph % (Auto) 9.8 L [place] % (Auto) 7.8 H [place] # 1.0 H Seg Neutrophils % 82.0 H Seg Neutrophils # 11.1 H D-Dimer Carbon Dioxide Glucose 116 H NT-Pro-B Natriuret Pep Albumin 3.5 L Urine WBC (Auto) 20.0 H 07/03/19 07/03/19 07/04/19 04:46 04:46 11:13 WBC RBC Hgb 8.0 L Hct 26.0 L MCV 64 L MCH 20 L RDW 21.6 H Lymph % (Auto) [place] % (Auto) [place] # Seg Neutrophils % Seg Neutrophils # D-Dimer 653.70 H Carbon Dioxide 21 L Glucose 120 H NT-Pro-B Natriuret Pep Albumin Urine WBC (Auto) 07/05/19 07/05/19 07/05/19 09:25 09:25 09:25 WBC RBC 3.64 L Hgb 7.1 L Hct 22.9 L MCV 63 L MCH 20 L RDW 21.5 H Lymph % (Auto) [place] % (Auto) [place] # Seg Neutrophils % Seg Neutrophils # D-Dimer Carbon Dioxide 21 L Glucose 141 H NT-Pro-B Natriuret Pep 577.6 H Albumin Urine WBC (Auto) - Diagnostic Findings Chest x-ray: report reviewed, image reviewed CT scan - chest: report reviewed, image reviewed Assessment and Plan Imp: 1. Pulm edema 2. Acute respiratory failure, hypoxia 3. Morbid obesity 4. Probable JOSE R 5. UTI 6. Microcytic anemia Rec: 1. Avoid IVFs if possible 2. Lasix prn, including if blood products are needed 3. Echo 4. Outpatient sleep study 5. Weight loss Plan of care reviewed w/ patient, she understands/agrees Thanks for the consult.
--- NOTE | 2019-07-05 14:59 | Progress Note ---
Assessment and Plan Assessment and plan: Acute pyelonephritis on left. Started on cefepime in ED Urine culture growing Gram neg [place] ID and sensitivity pending ID following Sepsis due to pyelonephritis blood cultures pending Fever due to sepsis, pyelonephritis Acute resp failure Started on Oxygen by [place] CXR shows increased pulm vasc. Stopped iv fluids. Give Lasix D-dimer high. CTA Chest no Pulm embolism but shows pneumonia Acute pulm edema vs pneumonia Given lasix On Cefepime Pulm consulted Morbid obesity. I counseled her on diet and exercise to lose weight signal timer status History Interval history: left flank pain fever nausea and vomiting Shortness of breath overnight, started on oxygen Hospitalist Physical - Physical exam Narrative exam: Gen: Not in acute distress, Lying in bed, morbidly obese HEENT: Normocephalic, atraumatic Neck: supple, no JVD Heart: S1 and S2 reg, no murmurs, rubs or gallop Lungs: Bilat crackles, no wheeze Abd: soft, tender left flank, no rebound tenderness, non distended, normal BS, Ext: No edema, no clubbing, no cyanosis Neuro: Awake, alert, oriented X 3, no focal neurological signs - Constitutional Vitals: Temp Pulse Resp BP Pulse Ox 97.4 F L 98 H 50 H 124/71 97 07/05/19 10:58 07/05/19 10:58 07/05/19 10:58 07/05/19 10:58 07/05/19 10:58 Results - Labs CBC & Chem 7: 07/06/19 06:30 07/06/19 06:30 Labs: Laboratory Last Values WBC 7.5 K/mm3 (4.5-11.0) 07/05/19 09:25 RBC 3.64 M/mm3 (3.65-5.03) L 07/05/19 09:25 Hgb 7.1 gm/dl (10.1-14.3) L 07/05/19 09:25 Hct 22.9 % (30.3-42.9) L 07/05/19 09:25 MCV 63 fl (79-97) L 07/05/19 09:25 MCH 20 pg (28-32) L 07/05/19 09:25 MCHC 31 % (30-34) 07/05/19 09:25 RDW 21.5 % (13.2-15.2) H 07/05/19 09:25 Plt Count 243 K/mm3 (140-440) 07/05/19 09:25 Lymph % (Auto) 9.8 % (13.4-35.0) L 07/01/19 14:03 Isabella % (Auto) 7.8 % (0.0-7.3) H 07/01/19 14:03 Eos % (Auto) 0.1 % (0.0-4.3) 07/01/19 14:03 Baso % (Auto) 0.3 % (0.0-1.8) 07/01/19 14:03 Lymph # 1.3 K/mm3 (1.2-5.4) 07/01/19 14:03 Isabella # 1.0 K/mm3 (0.0-0.8) H 07/01/19 14:03 Eos # 0.0 K/mm3 (0.0-0.4) 07/01/19 14:03 Baso # 0.0 K/mm3 (0.0-0.1) 07/01/19 14:03 Seg Neutrophils % 82.0 % (40.0-70.0) H 07/01/19 14:03 Seg Neutrophils # 11.1 K/mm3 (1.8-7.7) H 07/01/19 14:03 653.70 ng/mlDDU (0-234) H 07/04/19 11:13 Sodium 138 mmol/L (137-145) 07/05/19 09:25 Potassium 4.4 mmol/L (3.6-5.0) 07/05/19 09:25 Chloride 103.4 mmol/L (98-107) 07/05/19 09:25 Carbon Dioxide 21 mmol/L (22-30) L 07/05/19 09:25 18 mmol/L 07/05/19 09:25 BUN 10 mg/dL (7-17) 07/05/19 09:25 0.9 mg/dL (0.7-1.2) 07/05/19 09:25 Estimated GFR > 60 ml/min 07/05/19 09:25 11 % 07/05/19 09:25 Glucose 141 mg/dL (65-100) H 07/05/19 09:25 Lactic Acid 1.10 mmol/L (0.7-2.0) 07/01/19 19:34 Calcium 8.9 mg/dL (8.4-10.2) 07/05/19 09:25 0.40 mg/dL (0.1-1.2) 07/01/19 14:03 AST 20 units/L (5-40) 07/01/19 14:03 ALT 26 units/L (7-56) 07/01/19 14:03 116 units/L (35-129) 07/01/19 14:03 NT-Pro-B Natriuret Pep 577.6 pg/mL (0-450) H 07/05/19 09:25 7.5 g/dL (6.3-8.2) 07/01/19 14:03 3.5 g/dL (3.9-5) L 07/01/19 14:03 0.9 % 07/01/19 14:03 17 units/L (13-60) 07/01/19 14:03 HCG, Qual Negative (Negative) 07/01/19 14:03 Yellow (Yellow) 07/01/19 19:51 Slightly-cloudy (Clear) 07/01/19 19:51 6.0 (5.0-7.0) 07/01/19 19:51 Ur Specific [place] 1.013 (1.003-1.030) 07/01/19 19:51 30 mg/dl mg/dL (Negative) 07/01/19 19:51 Neg mg/dL (Negative) 07/01/19 19:51 Tr mg/dL (Negative) 07/01/19 19:51 Sm (Negative) 07/01/19 19:51 Pos (Negative) 07/01/19 19:51 Neg (Negative) 07/01/19 19:51 < 2.0 mg/dL (<2.0) 07/01/19 19:51 Ur Leukocyte Esterase Sm (Negative) 07/01/19 19:51 20.0 /HPF (0.0-6.0) H 07/01/19 19:51 6.0 /HPF (0.0-6.0) 07/01/19 19:51 U Epithel Cells (Auto) 1.0 /HPF (0-13.0) 07/01/19 19:51 1+ /HPF (Negative) 07/01/19 19:51 Few /HPF 07/01/19 19:51 Active Medications - Current Medications Current Medications: Generic Name Dose Route Start Last Admin Trade Name Freq PRN Reason Stop Dose Admin Acetaminophen 650 mg 07/01/19 20:35 07/05/19 06:02 Tylenol PO 650 mg Q4H PRN Administration Pain MILD(1-3)/Fever >100.5/POWELL Enoxaparin Sodium 40 mg 07/05/19 22:00 Lovenox SUB-Q QDAY@2200 MITCHEL Cefepime HCl 2 gm in 100 mls @ 200 mls/hr 07/04/19 15:00 07/05/19 14:55 Maxipime/Ns 2 Gm/100 Ml IV 200 mls/hr Q8HR MITCHEL Administration Protocol Morphine Sulfate 2 mg 07/01/19 21:31 07/04/19 22:48 Morphine IV 2 mg Q3H PRN Administration Pain, Moderate (4-6) Ondansetron HCl 4 mg 07/01/19 20:35 07/04/19 18:31 Zofran IV 4 mg Q8H PRN Administration Nausea And Vomiting Polyethylene Glycol 17 gm 07/02/19 14:44 07/03/19 10:37 Miralax 3350 PO 17 gm QDAY PRN Administration Constipation Sodium Chloride 10 ml 07/01/19 22:00 07/05/19 11:02 Sodium Chloride Flush Syringe 10 Ml IV 10 ml BID MITCHEL Administration Sodium Chloride 10 ml 07/01/19 20:35 Sodium Chloride Flush Syringe 10 Ml IV PRN PRN LINE FLUSH Nutrition/Malnutrition Assess - Dietary Evaluation Nutrition/Malnutrition Findings: Nutrition Notes Start: 07/04/19 08:12 Freq: Status: Active Protocol: Document 07/04/19 08:12 LP (Rec: 07/04/19 08:14 LP [id number]) Nutrition Notes Initial or Follow up Assessment Height 5 ft 4 in Weight 155 kg [place] Body Weight (kg) 54.54 BMI 58.6 Subjective/Other Information Wt incorrect in chart. Nutrition Intervention Revisit per MD consult or patient Sign Off request:
--- NOTE | 2019-07-05 18:16 | Progress Note ---
Assessment and Plan Cultures: 07/01 UCx - GNR pending finalization A/P: 49 yo F PMHx nephrolithiasis admitted with pyelonephritis 1. Acute sepsis - present on admission with fevers, leukocytosis, and tachycardia. Secondary to pyelonephritis. 2. Pyelonephritis - cultures with GNR pending finalization. Agree with cefepime for now pending culture results. Will likely need IV therapy to go home on. 3. Nephrolithiasis - stone cleared since this weekend, which is good as they can act as a harbour for bacteria yielding recurrent infections. No stones seen on CT. 4. Acute SOB - PNA, would continue treating with cefepime. Recs: - continue cefepime but increase dose to 2g q8h based on normal renal function - follow up cultures for identification and WILBERTO. - final antibiotic selection for homeogoing regimen pending culture finalization. Thank you for the consult, we will continue to follow. Nuha Rose MD [facility] ([facility]) M: [phone] O: [phone] F: [phone] Subjective Date of service: 07/05/19 Interval history: Ongoing fevers, but feels much improved. Pain almost gone at this point. Objective - Exam Narrative Exam: Constitutional: Alert, cooperative. No acute distress Head, Ears, Nose: Normocephalic, atraumatic. External ears, nose normal Eyes: Conjunctivae/corneas clear. No icterus. No ptosis. Neck: Supple, no meningeal signs Oral: dentition fair, no thrush Cardiovascular: S1, S2 normal. Respiratory: Good air entry, clear to auscultation bilaterally GI: Soft, non-tender; bowel sounds normal. No peritoneal signs. Musculoskeletal: No pedal edema, no cyanosis. L flank tenderness improved Skin: No rash or abscess Hem/Lymphatic: No palpable cervical or supraclavicular nodes. No lymphangitis Psych: Mood ok. Affect normal Neurological: Awake, alert, oriented. No gross abnormality - Constitutional Vitals: Vital Signs Temp Pulse Resp BP Pulse Ox 97.5 F L 74 18 111/63 99 07/05/19 17:22 07/05/19 17:22 07/05/19 17:22 07/05/19 17:22 07/05/19 17:22 Temperature -Last 24 Hours Temperature 97.5 F Temperature 97.4 F Temperature 97.4 F Temperature 98.1 F Temperature 98.5 F - Labs CBC & Chem 7: 07/05/19 09:25 07/05/19 09:25 Labs: Abnormal lab results 07/05/19 07/05/19 07/05/19 Range/Units 09:25 09:25 09:25 RBC 3.64 L (3.65-5.03) M/mm3 Hgb 7.1 L (10.1-14.3) gm/dl Hct 22.9 L (30.3-42.9) % MCV 63 L (79-97) fl MCH 20 L (28-32) pg RDW 21.5 H (13.2-15.2) % Carbon Dioxide 21 L (22-30) mmol/L Glucose 141 H (65-100) mg/dL NT-Pro-B Natriuret Pep 577.6 H (0-450) pg/mL
[2019-07-05] MEDS: MORPHINE IV PRN (20:02)
[2019-07-05] MEDS ORDERED: LOVENOX SUB-Q SCH (22:00)
[2019-07-06] MEDS: MAXIPIME/NS 2 GM/100 ML 2 GM/100 ML BAG IV SCH ×2 (06:07→13:25)
[2019-07-06] MEDS: MORPHINE IV PRN (06:14)
[2019-07-06 07:25] LABS: Hematocrit 24.5 % (30.3-42.9); Hemoglobin 7.6 gm/dl (10.1-14.3); Mean Corpuscular HGB Conc 31 % (30-34); Platelet Count 298 K/mm3 (140-440); Red Blood Count 3.86 M/mm3 (3.65-5.03)
[2019-07-06 07:28] LABS: Mean Corpuscular Volume 64 fl (79-97)
[2019-07-06 07:29] LABS: BUN/Creatinine Ratio 12; Blood Urea Nitrogen 11 mg/dL (7-17); Calcium 8.8 mg/dL (8.4-10.2); Hemolysis Index 13
[2019-07-06] MEDS: SODIUM CHLORIDE FLUSH SYRINGE 10 ML IV SCH (09:42)
--- NOTE | 2019-07-06 11:00 | XRay Report ---
CHEST 1 VIEW INDICATION: infiltrates, pulm edema versus pneumonia. COMPARISON: 2 days prior FINDINGS: Support devices: None. Heart: Within normal limits. Lungs/Pleura: Mild patchy right basilar airspace disease with otherwise clear lungs. Additional findings: None. IMPRESSION: 1. Persistent mild patchy right basilar airspace disease. Signer Name: Ibrahima Florez MD Signed: 07/06/2019 10:56 AM Workstation Name: [id number]
--- NOTE | 2019-07-06 12:54 | Progress Note ---
Assessment and Plan Cultures: 07/01 UCx - GNR, mixed, specimen not being processed further by micro lab Blood cultures negative A/P: 49 yo F PMHx nephrolithiasis admitted with pyelonephritis 1. Acute sepsis - present on admission with fevers, leukocytosis, and tachycardia. Secondary to pyelonephritis. Resolved now. 2. Pyelonephritis - cultures with GNR, mixed, specimen not being processed further by micro lab 3. Nephrolithiasis - stone cleared since this weekend. No stones seen on CT. 4. Acute SOB - PNA. Already got abx. Can d/c on PO abx. Recs: - already completed 6 days of IV abx therapy - OK to discharge from ID standpoint on PO Augmentin 875 mg BID x 1 more day D/W Dr. Fran Peña MD, FACP [facility] ([facility]) C: [phone] O: [phone] F: [phone] Subjective Date of service: 07/06/19 Interval history: no fever. Feels well. No nausea, vomiting. Objective - Exam Narrative Exam: Constitutional: Alert, cooperative. No acute distress. Obese. Head, Ears, Nose: Normocephalic, atraumatic. External ears, nose normal Eyes: Conjunctivae/corneas clear. No icterus. No ptosis. Neck: Supple, no meningeal signs Oral: dentition fair, no thrush Cardiovascular: S1, S2 normal. Respiratory: Good air entry, clear to auscultation bilaterally GI: Soft, non-tender; bowel sounds normal. No peritoneal signs. Musculoskeletal: No pedal edema, no cyanosis. L flank tenderness improved Skin: No rash or abscess Hem/Lymphatic: No palpable cervical or supraclavicular nodes. No lymphangitis Psych: Mood ok. Affect normal Neurological: Awake, alert, oriented. No gross abnormality - Constitutional Vitals: Vital Signs Temp Pulse Resp BP Pulse Ox 97.3 F L 92 H 18 120/50 99 07/06/19 12:01 07/06/19 12:01 07/06/19 12:01 07/06/19 12:01 07/06/19 12:01 Temperature -Last 24 Hours Temperature 97.3 F Temperature 98.4 F Temperature 99.0 F Temperature 97.5 F Temperature 97.4 F - Labs CBC & Chem 7: 07/06/19 06:30 07/06/19 06:30 Labs: Abnormal lab results 07/06/19 07/06/19 Range/Units 06:30 06:30 Hgb 7.6 L (10.1-14.3) gm/dl Hct 24.5 L (30.3-42.9) % MCV 64 L (79-97) fl MCH 20 L (28-32) pg RDW 22.0 H (13.2-15.2) % Glucose 122 H (65-100) mg/dL
[2019-07-06] MEDS ORDERED: LASIX IV ONE (14:01)
--- NOTE | 2019-07-06 14:44 | Progress Note ---
Assessment and Plan Imp: 1. Pulm edema 2. Acute respiratory failure, hypoxia 3. Morbid obesity 4. Probable JOSE R 5. UTI 6. Microcytic anemia 7. R/o RLL pneumonia Rec: 1. Avoid IVFs if possible 2. Lasix prn, including if blood products are needed 3. Echo 4. Outpatient sleep study 5. Weight loss 6. Continue with abx for UTI and possible pneumonia Subjective Date of service: 07/06/19 Interval history: C/o mild dry cough, improved Objective Vital Signs - 12hr 07/06/19 07/06/19 05:27 12:01 Temperature 98.4 F 97.3 F L Pulse Rate 94 H 92 H Respiratory 18 18 Rate Blood Pressure 147/76 120/50 O2 Sat by Pulse 97 99 Oximetry Constitutional: no acute distress, alert Eyes: non-icteric Neck: supple Effort: normal Ascultation: Bilateral: diminished breath sounds Cardiovascular: regular rate and rhythm (no mrg) Gastrointestinal: normoactive bowel sounds, soft, non-tender, non-distended Integumentary: normal Extremities: no cyanosis, pink and warm, edema (1+ bilateral LE edema) Neurologic: normal mental status, non-focal exam, pupils equal and round Psychiatric: mood appropriate, affect normal CBC and BMP: 07/06/19 06:30 07/06/19 06:30 ABG, PT/INR, D-dimer: PT/INR, D-dimer 653.70 ng/mlDDU (0-234) H 07/04/19 11:13 Abnormal lab findings: Abnormal Labs 07/01/19 07/01/19 07/01/19 14:03 14:03 19:51 WBC 13.5 H RBC Hgb 8.4 L Hct 27.7 L MCV 64 L MCH 19 L RDW 21.9 H Lymph % (Auto) 9.8 L Brooks % (Auto) 7.8 H Brooks # 1.0 H Seg Neutrophils % 82.0 H Seg Neutrophils # 11.1 H D-Dimer Carbon Dioxide Glucose 116 H NT-Pro-B Natriuret Pep Albumin 3.5 L Urine WBC (Auto) 20.0 H 07/03/19 07/03/19 07/04/19 04:46 04:46 11:13 WBC RBC Hgb 8.0 L Hct 26.0 L MCV 64 L MCH 20 L RDW 21.6 H Lymph % (Auto) Brooks % (Auto) Brooks # Seg Neutrophils % Seg Neutrophils # D-Dimer 653.70 H Carbon Dioxide 21 L Glucose 120 H NT-Pro-B Natriuret Pep Albumin Urine WBC (Auto) 07/05/19 07/05/19 07/05/19 09:25 09:25 09:25 WBC RBC 3.64 L Hgb 7.1 L Hct 22.9 L MCV 63 L MCH 20 L RDW 21.5 H Lymph % (Auto) Brooks % (Auto) Brooks # Seg Neutrophils % Seg Neutrophils # D-Dimer Carbon Dioxide 21 L Glucose 141 H NT-Pro-B Natriuret Pep 577.6 H Albumin Urine WBC (Auto) 07/06/19 07/06/19 06:30 06:30 WBC RBC Hgb 7.6 L Hct 24.5 L MCV 64 L MCH 20 L RDW 22.0 H Lymph % (Auto) Brooks % (Auto) Brooks # Seg Neutrophils % Seg Neutrophils # D-Dimer Carbon Dioxide Glucose 122 H NT-Pro-B Natriuret Pep Albumin Urine WBC (Auto) Chest x-ray: image reviewed (Subtle RLL air space disease r/o infiltrates)
--- NOTE | 2019-07-06 15:15 | Discharge Summary ---
Providers - Providers Date of Admission: 07/01/19 20:35 Date of discharge: 07/06/19 Attending physician: CHAPARRITA HAND 07/03/19 11:14 Consult to Physician [CONS] Routine Comment: Consulting Provider: KIRAN YUAN Physician Instructions: Reason For Exam: Acute pyelonephritis 07/05/19 10:18 Consult to Physician [CONS] Routine Comment: Consulting Provider: JENNIFER PEDERSEN Physician Instructions: Reason For Exam: Acute resp failure, SOB, pneumonia, fluid overload Primary care physician: NET SORTER Hospitalization Condition: Fair Disposition: DC-01 TO HOME OR SELFCARE Core Measure Documentation - Palliative Care Palliative Care/ Comfort Measures: Not Applicable - Core Measures Any of the following diagnoses?: none Exam - Constitutional Vitals: Temp Pulse Resp BP Pulse Ox 97.3 F L 92 H 18 120/50 99 07/06/19 12:01 07/06/19 12:01 07/06/19 12:01 07/06/19 12:01 07/06/19 12:01 Plan Activity: advance as tolerated Diet: low fat, low cholesterol, low salt Plan of Treatment: 1.Follow up with PCP in 1 week 2.Follow up with Dr. Rojas, Urology in 1 week Follow up with: PRIMARY CARE, [Primary Care Provider] - 7 Days Prescriptions: Amoxicillin/Potassium Clav [Augmentin 875-125 Tablet] 1 each PO BID #6 tablet HYDROcodone/APAP 5-325 [[place] 5/325] 1 each PO Q6HR PRN #12 tablet PRN Reason: Pain
[2019-07-06 15:47] VITALS: BP 130/56
== END 2019-07-06 16:55 | disposition home or self-care (01) | DRG 871 ==
LOC: ED 13:48 → 3A 20:35
PROVIDERS: ADMIT Internal Medicine; ATTEND Internal Medicine
DX: A41.9 Sepsis, unspecified organism (principal); J96.01 Acute respiratory failure with hypoxia; N12 Tubulo-interstitial nephritis, not specified as acute or chronic; Z68.43 Body mass index [BMI] 50.0-59.9, adult; D50.9 Iron deficiency anemia, unspecified; E66.01 Morbid (severe) obesity due to excess calories; N20.0 Calculus of kidney; Z71.3 Dietary counseling and surveillance; Z82.49 Family history of ischemic heart disease and other diseases of the circulatory system; Z90.49 Acquired absence of other specified parts of digestive tract
CPT/HCPCS: 36415; 71045; 71275; 74022; 74176; 80048; 80053; 81001; 82140; 83690; 83880; 84703; 85025; 85027; 85379; 87040; 87086; 93306; 96361; 96374; 96375; G0378; J0692; J1644; J1650; J1885; J1940; J2270; J2405; J7030; Q9967

== ENCOUNTER 2019-11-08 18:49 | Emergency (ER) | payer SELFPAY ==
[2019-11-08] MEDS ORDERED: ASPIRIN 325 MG TAB PO ONE (19:25)
[2019-11-08] MEDS ORDERED: ASPIRIN 325 MG TAB ONE (19:27)
[2019-11-08 19:56] LABS: Basophils % (Auto) 0.3 % (0.0-1.8); Eosinophils # (Auto) 0.1 K/mm3 (0.0-0.4); Eosinophils % (Auto) 1.6 % (0.0-4.3); Hematocrit 30.4 % (30.3-42.9); Hemoglobin 9.5 gm/dl (10.1-14.3); Lymphocytes % (Auto) 25.3 % (13.4-35.0); Mean Corpuscular HGB Conc 31 % (30-34); Monocytes # (Auto) 0.5 K/mm3 (0.0-0.8); Monocytes % (Auto) 5.8 % (0.0-7.3); Platelet Count 352 K/mm3 (140-440); Red Blood Count 4.41 M/mm3 (3.65-5.03)
[2019-11-08 19:59] LABS: Mean Corpuscular Volume 69 fl (79-97)
--- NOTE | 2019-11-08 20:07 | XRay Report ---
CHEST 1 VIEW INDICATION / CLINICAL INFORMATION: MAIN: Chest Pain AND HEADACHE X 1 DAY; JUST GOT OVER FLU. COMPARISON: 07/06/2019 FINDINGS: SUPPORT DEVICES: None. HEART / MEDIASTINUM: No significant abnormality. LUNGS / PLEURA: No significant pulmonary or pleural abnormality. No pneumothorax. ADDITIONAL FINDINGS: No significant additional findings. IMPRESSION: 1. No significant change Signer Name: Ariel Fragoso MD Signed: 11/08/2019 8:03 PM Workstation Name: [id number]
[2019-11-08 20:17] LABS: BUN/Creatinine Ratio 8; Blood Urea Nitrogen 6 mg/dL (7-17); Calcium 9.1 mg/dL (8.4-10.2); Hemolysis Index 4
[2019-11-08] MEDS ORDERED: KETOROLAC 30 MG/1 ML INJ IV ONE (21:34)
[2019-11-08] MEDS ORDERED: METOCLOPRAMIDE 10 MG/2 ML INJ IV ONE (21:34)
[2019-11-08] MEDS ORDERED: diphenhydrAMINE 50 MG/ML VIAL IV ONE (21:34)
[2019-11-08] MEDS ORDERED: methylPREDNISolone Sod Succinate 125 MG/2 ML INJ IV ONE (21:34)
[2019-11-08] MEDS ORDERED: FAMOTIDINE 20 MG/2 ML INJ IV ONE (21:34)
[2019-11-08] MEDS ORDERED: SODIUM CHLORIDE 0.9% 500 ML 500 ML IV ONE (21:35)
[2019-11-08] MEDS ORDERED: MORPHINE 4 MG/1 ML INJ IV ONE (21:35)
--- NOTE | 2019-11-08 21:36 | Emergency Department Report ---
ED General Adult HPI - General Chief complaint: Chest Pain Stated complaint: HBP/CHEST PAIN Time Seen by Provider: 11/08/19 21:17 Source: patient, RN notes reviewed, old records reviewed Mode of arrival: Ambulatory Limitations: No Limitations - History of Present Illness Initial comments: Primary care Dr.: Dr. Messer Past medical history: Morbid obesity, left-sided pyelonephritis, sepsis, pneumonia, had echocardiogram performed in 2019, which showed ejection fraction 55-60%. 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 The patient presents to the ER with multiple complaints. The patient's first complaint is chest wall pain. The chest wall pain has been constant for the past 10-1/2 hours. It is central and left-sided. It does not radiate to the neck, arms or back. There is no vomiting, diaphoresis or exertional shortness of breath. There is no cough. The patient states she is not . The patient denies DVT and pulmonary embolism risk factors. The patient reports a positive family history of LA in 1 of her parents, in their mid 50s. Her second complaint is nontraumatic left sided flank pain and left upper quadrant pain. This pain is intermittent, and present for 1 week. It increases with palpation and percussion. She thinks that she might have a kidney infectio n again, but she is not sure. She denies dysuria. Her third complaint is headache. The headache is frontal and bitemporal. The headache has been constant for the past 12 hours. The headache is throbbing, and not sudden or thunderclap in nature. The headache is not the worse headache of her life. She reports frequent headaches, and typically gets headaches like this every 2-3 days. There is no neck pain or neck stiffness, there is no vomiting and no fever. Her final complaint is high blood pressure, she believes that her blood pressure was 210 systolic when she developed her chest wall pain. She was at work, when this happened, had her blood pressure checked, and was found to be high. -: Gradual, hour(s) Location: head, chest, back, abdomen Radiation: other Severity scale (0 -10): 9 Quality: other Consistency: other Improves with: other Worsens with: other - Related Data Previous Rx's Medication Instructions Recorded Last Taken Type Amoxicillin/Potassium Clav 1 each PO BID #6 tablet 07/06/19 Unknown Rx [Augmentin 875-125 Tablet] HYDROcodone/APAP 5-325 [[place]arrison 1 each PO Q6HR PRN #12 tablet 07/06/19 Unknown Rx 5/325] Acetaminophen [Non-Aspirin Extra 500 mg PO Q6HR PRN #30 tablet 11/09/19 Unknown Rx Strength] Ibuprofen [Motrin] 600 mg PO Q8H PRN #30 tablet 11/09/19 Unknown Rx Metoclopramide [Reglan] 10 mg PO QID PRN #30 tablet 11/09/19 Unknown Rx levoFLOXacin [Levaquin] 750 mg PO QDAY #6 tablet 11/09/19 Unknown Rx Allergies Allergy/AdvReac Type Severity Reaction Status Date / Time No Known Allergies Allergy Unverified 06/29/19 22:11 ED Review of Systems ROS: Stated complaint: HBP/CHEST PAIN Other details as noted in HPI Constitutional: denies: fever Eyes: denies: eye discharge, vision change ENT: denies: other Respiratory: denies: shortness of breath, wheezing Cardiovascular: chest pain Gastrointestinal: abdominal pain. denies: nausea, vomiting, diarrhea, constipation, hematemesis, melena, hematochezia Genitourinary: denies: dysuria Musculoskeletal: back pain Skin: denies: lesions Neurological: headache. denies: weakness Psychiatric: anxiety Hematological/Lymphatic: denies: easy bleeding ED Past Medical Hx - Past Medical History Hx Congestive Heart Failure: No Hx Diabetes: No Hx Kidney Stones: Yes Hx Asthma: No Hx COPD: No Additional medical history: Morbid obesity - Surgical History Hx Appendectomy: Yes - Social History Smoking Status: Never Smoker Substance Use Type: None - Medications Home Medications: Home Medications Medication Instructions Recorded Confirmed Last Taken Type Amoxicillin/Potassium Clav 1 each PO BID #6 tablet 07/06/19 Unknown Rx [Augmentin 875-125 Tablet] HYDROcodone/APAP 5-325 [[place] 1 each PO Q6HR PRN #12 tablet 07/06/19 Unknown Rx 5/325] Acetaminophen [Non-Aspirin Extra 500 mg PO Q6HR PRN #30 tablet 11/09/19 Unknown Rx Strength] Ibuprofen [Motrin] 600 mg PO Q8H PRN #30 tablet 11/09/19 Unknown Rx Metoclopramide [Reglan] 10 mg PO QID PRN #30 tablet 11/09/19 Unknown Rx levoFLOXacin [Levaquin] 750 mg PO QDAY #6 tablet 11/09/19 Unknown Rx ED Physical Exam - General Limitations: No Limitations General appearance: alert, anxious, obese - Head Head exam: Present: atraumatic, normocephalic - Eye Eye exam: Present: normal appearance, PERRL, EOMI, other (visual acuity intact to finger counting, color perception, reading at a close distance). Absent: nystagmus - ENT ENT exam: Present: normal exam, normal orophraynx, mucous membranes moist, normal external ear exam - Neck Neck exam: Present: normal inspection, full ROM. Absent: tenderness, meningismus - Respiratory Respiratory exam: Present: normal lung sounds bilaterally, chest wall tenderness, other (there is no breast redness, pus, streaking. There is reproducible central and left-sided chest wall tenderness. Chaperoned by nurse Mark). Absent: respiratory distress, wheezes, rales, rhonchi, stridor - Cardiovascular Cardiovascular Exam: Present: regular rate, normal rhythm, normal heart sounds. Absent: bradycardia, tachycardia, irregular rhythm, systolic murmur, diastolic murmur, rubs, gallop - GI/Abdominal GI/Abdominal exam: Present: soft, tenderness (there is minimal left upper quadrant tenderness). Absent: distended, guarding, rebound, rigid, pulsatile mass - Extremities Exam Extremities exam: Present: normal inspection, full ROM, other (2+ pulses noted in the bilateral upper and lower extremities. The pelvis is stable. There is no long bony tenderness. The muscular compartments are soft. There is no redness, pus, streaking or erythema.). Absent: pedal edema, calf tenderness - Back Exam Back exam: Present: normal inspection, full ROM, CVA tenderness (L). Absent: tenderness, CVA tenderness (R), paraspinal tenderness, vertebral tenderness - Neurological Exam Neurological exam: Present: alert, oriented X3, normal gait, other (there is no facial droop. The tongue is midline. Extraocular movements are intact bilaterally. There is 5 out of 5 strength in bilateral upper and lower extremities. Sensation is intact to light touch bilateral upper and lower extremities. There is no past-pointing. There is no pronator drift. There is normal [id number]. There is a normal gait.). Absent: motor sensory deficit - Psychiatric Psychiatric exam: Present: anxious - Skin Skin exam: Present: warm, dry, intact, normal color. Absent: rash ED Course Vital Signs 11/08/19 11/08/19 11/08/19 19:23 21:31 21:42 Temperature 98.0 F 98.1 F Pulse Rate 96 H 89 90 Respiratory 18 19 20 Rate Blood Pressure 194/91 Blood Pressure 145/73 137/79 [Right] O2 Sat by Pulse 99 99 98 Oximetry 11/08/19 11/08/19 11/08/19 22:01 22:30 23:00 Temperature Pulse Rate 88 84 85 Respiratory 16 19 17 Rate Blood Pressure 160/55 138/77 125/70 Blood Pressure [Right] O2 Sat by Pulse 97 96 95 Oximetry 11/08/19 11/09/19 11/09/19 23:45 00:01 00:30 Temperature Pulse Rate 79 83 87 Respiratory 14 17 16 Rate Blood Pressure 138/77 122/57 141/74 Blood Pressure [Right] O2 Sat by Pulse 93 94 Oximetry 11/09/19 11/09/19 01:00 02:30 Temperature Pulse Rate 86 86 Respiratory 17 15 Rate Blood Pressure 144/68 Blood Pressure 138/79 [Right] O2 Sat by Pulse 94 99 Oximetry - Reevaluation(s) Reevaluation #1: 11/08/19 21:52 Differential diagnosis, including but not limited to: Costochondritis, pyelonephritis, pneumonia, pulmonary embolism, acute coronary syndrome, pneumonia, perinephric abscess Migraine headache, tension headache, cluster headache Assessment and plan: 49-year-old female with multiple complaints Complaints #1, chest pain. Chest wall pain is reproducible, troponin negative 1, chest wall pain has been constant for the past 12 hours, we appreciate that the patient does have some vascular risk factors, however based off of the history and physical, patient at low risk for major adverse cardiac event as for the heart score. Her EKGs unchanged 2. We will treat her pain appropriately, obtain CT angiogram chest given history of simultaneous chest pain and flank pain, and history of high blood pressure. Patient will need to follow up with outpatient cardiology to complete her cardiac risk stratification, if no emergent thoracic pathology is identified today. Complaint #2, headache: Headache does not have red flag symptoms such as sudden or thunderclap onset, there is no neck pain or neck stiffness, there are no meningeal signs. She has a GCS of 15, with no focal neurologic deficits, NIH score of 0. The patient's headache does not appear to represent emergent neurologic pathology, we will treat her headache supportively and symptomatically. Complaint #3, left-sided flank pain, with left-sided CVA tenderness on examination. Suspect pyelonephritis. Urinalysis pending. Pain medication o rdered. CT scan abdomen pelvis ordered. Reassess after these have resulted. Complaints #4, hypertension: Blood pressure at this time does not require emergent intervention, or antihypertensive therapy, she can follow up with outpatient primary care doctor or international marketing intern for history of elevated blood pressure. Reevaluation #2: 11/09/19 00:50 CT scan of the abdomen pelvis is negative for acute disease. Chest CT pending. Urinalysis pending. Troponin negative 2. EKG unchanged 2. Reevaluation #3: 11/09/19 01:26 A she is reassessed multiple times. Her symptoms are resolved. CT scan is negative for objective pathology. Urinalysis pending. I gave the patient icewater, which she is drinking At the moment. Reevaluation #4: 11/09/19 03:06 Patient had a very prolonged time prior to disposition in this emergency room as it took her a very long time to provide a urine sample. Her urine sample is reviewed and appreciated and found to be nitrite positive. She also has left- sided CVA tenderness, and has a known history of pyelonephritis. Therefore, I will treat her empirically for possible early pyelonephritis. This hospital has a policy and procedure whereby patients who are at low risk for major adverse cardiac event as for the heart score, as this patient is, receive referral to outpatient cardiology to complete a cardiac risk stratification. The patient's information was transmitted to our local [facility] cardiology practice to complete outpatient cardiac risk stratification. The patient is suitable for trial of oral outpatient antibiotic management, and supportive management for chest wall pain. She will need to follow up with her outpatient primary care doctor and/or international marketing intern. Return precautions are reviewed. Reevaluation #5: 11/11/19 13:47 Urine culture results are reviewed and appreciated. I contacted the patient's listed phone number that she provided, nobody answered, left a message requesting callback. ED Medical Decision Making - Lab Data Result diagrams: 11/08/19 19:44 11/08/19 19:44 Vital Signs 11/08/19 11/08/19 19:23 21:42 Temperature 98.0 F 98.1 F Pulse Rate 96 H 90 Respiratory 18 20 Rate Blood Pressure 145/73 137/79 [Right] O2 Sat by Pulse 99 98 Oximetry Lab Results 11/08/19 11/08/19 Range/Units 19:44 19:44 WBC 7.8 (4.5-11.0) K/mm3 RBC 4.41 (3.65-5.03) M/mm3 Hgb 9.5 L (10.1-14.3) gm/dl Hct 30.4 (30.3-42.9) % MCV 69 L (79-97) fl MCH 22 L (28-32) pg MCHC 31 (30-34) % RDW 19.0 H (13.2-15.2) % Plt Count 352 (140-440) K/mm3 Lymph % (Auto) 25.3 (13.4-35.0) % [place] % (Auto) 5.8 (0.0-7.3) % Eos % (Auto) 1.6 (0.0-4.3) % Baso % (Auto) 0.3 (0.0-1.8) % Lymph # 2.0 (1.2-5.4) K/mm3 [place] # 0.5 (0.0-0.8) K/mm3 Eos # 0.1 (0.0-0.4) K/mm3 Baso # 0.0 (0.0-0.1) K/mm3 Seg Neutrophils % 67.0 (40.0-70.0) % Seg Neutrophils # 5.2 (1.8-7.7) K/mm3 Sodium 139 (137-145) mmol/L Potassium 4.3 (3.6-5.0) mmol/L Chloride 103.7 (98-107) mmol/L Carbon Dioxide 20 L (22-30) mmol/L Anion Gap 20 mmol/L BUN 6 L (7-17) mg/dL Creatinine 0.8 (0.7-1.2) mg/dL Estimated GFR > 60 ml/min BUN/Creatinine Ratio 8 % Glucose 109 H (65-100) mg/dL Calcium 9.1 (8.4-10.2) mg/dL Troponin T < 0.010 (0.00-0.029) ng/mL Vital Signs 11/08/19 11/08/19 11/08/19 19:23 21:31 21:42 Temperature 98.0 F 98.1 F Pulse Rate 96 H 89 90 Respiratory 18 19 20 Rate Blood Pressure 194/91 Blood Pressure 145/73 137/79 [Right] O2 Sat by Pulse 99 99 98 Oximetry 11/08/19 11/08/19 11/08/19 22:01 22:30 23:00 Temperature Pulse Rate 88 84 85 Respiratory 16 19 17 Rate Blood Pressure 160/55 138/77 125/70 Blood Pressure [Right] O2 Sat by Pulse 97 96 95 Oximetry 11/08/19 11/09/19 11/09/19 23:45 00:01 00:30 Temperature Pulse Rate 79 83 87 Respiratory 14 17 16 Rate Blood Pressure 138/77 122/57 141/74 Blood Pressure [Right] O2 Sat by Pulse 93 94 Oximetry 11/09/19 01:00 Temperature Pulse Rate 86 Respiratory 17 Rate Blood Pressure 144/68 Blood Pressure [Right] O2 Sat by Pulse 94 Oximetry Lab Results 11/08/19 11/08/19 11/08/19 Range/Units 19:44 19:44 21:40 WBC 7.8 (4.5-11.0) K/mm3 RBC 4.41 (3.65-5.03) M/mm3 Hgb 9.5 L (10.1-14.3) gm/dl Hct 30.4 (30.3-42.9) % MCV 69 L (79-97) fl MCH 22 L (28-32) pg MCHC 31 (30-34) % RDW 19.0 H (13.2-15.2) % Plt Count 352 (140-440) K/mm3 Lymph % (Auto) 25.3 (13.4-35.0) % [place] % (Auto) 5.8 (0.0-7.3) % Eos % (Auto) 1.6 (0.0-4.3) % Baso % (Auto) 0.3 (0.0-1.8) % Lymph # 2.0 (1.2-5.4) K/mm3 [place] # 0.5 (0.0-0.8) K/mm3 Eos # 0.1 (0.0-0.4) K/mm3 Baso # 0.0 (0.0-0.1) K/mm3 Seg Neutrophils % 67.0 (40.0-70.0) % Seg Neutrophils # 5.2 (1.8-7.7) K/mm3 PT 14.8 (12.2-14.9) Sec. INR 1.14 H (0.87-1.13) D-Dimer 152.44 (0-234) ng/mlDDU Sodium 139 (137-145) mmol/L Potassium 4.3 (3.6-5.0) mmol/L Chloride 103.7 (98-107) mmol/L Carbon Dioxide 20 L (22-30) mmol/L Anion Gap 20 mmol/L BUN 6 L (7-17) mg/dL Creatinine 0.8 (0.7-1.2) mg/dL Estimated GFR > 60 ml/min BUN/Creatinine Ratio 8 % Glucose 109 H (65-100) mg/dL Calcium 9.1 (8.4-10.2) mg/dL Magnesium (1.7-2.3) mg/dL Total Creatine Kinase (30-135) units/L Troponin T < 0.010 (0.00-0.029) ng/mL HCG, Quant (0-4) mIU/mL Urine Color (Yellow) Urine Turbidity (Clear) Urine pH (5.0-7.0) Ur Specific [place] (1.003-1.030) Urine Protein (Negative) mg/dL Urine Glucose (UA) (Negative) mg/dL Urine Ketones (Negative) mg/dL Urine Blood (Negative) Urine Nitrite (Negative) Urine Bilirubin (Negative) Urine Urobilinogen (<2.0) mg/dL Ur Leukocyte Esterase (Negative) Urine WBC (Auto) (0.0-6.0) /HPF Urine RBC (Auto) (0.0-6.0) /HPF U Epithel Cells (Auto) (0-13.0) /HPF 11/08/19 11/08/19 11/09/19 Range/Units 21:40 21:40 01:33 WBC (4.5-11.0) K/mm3 RBC (3.65-5.03) M/mm3 Hgb (10.1-14.3) gm/dl Hct (30.3-42.9) % MCV (79-97) fl MCH (28-32) pg MCHC (30-34) % RDW (13.2-15.2) % Plt Count (140-440) K/mm3 Lymph % (Auto) (13.4-35.0) % [place] % (Auto) (0.0-7.3) % Eos % (Auto) (0.0-4.3) % Baso % (Auto) (0.0-1.8) % Lymph # (1.2-5.4) K/mm3 [place] # (0.0-0.8) K/mm3 Eos # (0.0-0.4) K/mm3 Baso # (0.0-0.1) K/mm3 Seg Neutrophils % (40.0-70.0) % Seg Neutrophils # (1.8-7.7) K/mm3 PT (12.2-14.9) Sec. INR (0.87-1.13) D-Dimer (0-234) ng/mlDDU Sodium (137-145) mmol/L Potassium (3.6-5.0) mmol/L Chloride (98-107) mmol/L Carbon Dioxide (22-30) mmol/L Anion Gap mmol/L BUN (7-17) mg/dL Creatinine (0.7-1.2) mg/dL Estimated GFR ml/min BUN/Creatinine Ratio % Glucose (65-100) mg/dL Calcium (8.4-10.2) mg/dL Magnesium 2.10 (1.7-2.3) mg/dL Total Creatine Kinase 61 (30-135) units/L Troponin T < 0.010 (0.00-0.029) ng/mL HCG, Quant 0.906 (0-4) mIU/mL Urine Color Straw (Yellow) Urine Turbidity Clear (Clear) Urine pH 5.0 (5.0-7.0) Ur Specific [place] > 1.059 H (1.003-1.030) Urine Protein <15 mg/dl (Negative) mg/dL Urine Glucose (UA) Neg (Negative) mg/dL Urine Ketones Neg (Negative) mg/dL Urine Blood Neg (Negative) Urine Nitrite Pos (Negative) Urine Bilirubin Neg (Negative) Urine Urobilinogen < 2.0 (<2.0) mg/dL Ur Leukocyte Esterase Neg (Negative) Urine WBC (Auto) 1.0 (0.0-6.0) /HPF Urine RBC (Auto) 4.0 (0.0-6.0) /HPF U Epithel Cells (Auto) 5.0 (0-13.0) /HPF - EKG Data -: EKG Interpreted by Ma EKG shows normal: sinus rhythm Rate: normal - EKG Data 11/08/19 21:54 Both EKGs today appear to be unchanged from prior EKG dated 06/29/2019 EKG #1 shows a sinus rhythm, 93 bpm, normal axis, QTC 445 ms, there is low vol tage in V2. This is not a STEMI. Rate 85 bpm. EKG #2 is unchanged from prior. - Radiology Data Radiology results: report reviewed, image reviewed Print Report Referring Physician: MORGAN HAMILTON Patient Name: BRIAN TABOR Date of : 1970 Sex: Female Report Date: 2019-11-08 Report Status: Finalized Findings [facility], [place] [address] [place] [address] XRay Report Signed Patient: BRIAN TABOR MR#: [id number] : 1970 Acct:[id number] Age/Sex: 49 / F ADM Date: 11/08/19 Loc: ED Attending Dr: Ordering Physician: MORGAN HAMILTON MD Date of Service: 11/08/19 Procedure(s): XR chest 1V ap Accession Number(s): [id number] cc: ED MD ALFONSO Fluoro Time In Minutes: CHEST 1 VIEW INDICATION / CLINICAL INFORMATION: MAIN: Chest Pain AND HEADACHE X 1 DAY; JUST GOT OVER FLU. COMPARISON: 07/06/2019 FINDINGS: SUPPORT DEVICES: None. HEART / MEDIASTINUM: No significant abnormality. LUNGS / PLEURA: No significant pulmonary or pleural abnormality. No pneumothorax. ADD ITIONAL FINDINGS: No significant additional findings. IMPRESSION: 1. No significant change Signer Name: Ariel Fragoso MD Signed: 11/08/2019 8:03 PM Workstation Name: [id number] Transcribed By: JM Dictated By: Ariel Fragoso MD Electronically Authenticated By: Ariel Fragoso MD Signed Date/Time: 11/08/192002 DD/ 01 Critical care attestation.: If time is entered above; I have spent that time in minutes in the direct care of this critically ill patient, excluding procedure time. ED Disposition Clinical Impression: Chest wall pain, Left flank pain, History of headache Disposition: TO HOME OR SELFCARE Is pt being admited?: No Does the pt Need Aspirin: No Condition: Stable Additional Instructions: Cultures were sent today, and results will be available in the next 3-5 days. Take the pain medication as needed, nausea medication as needed, and antibiotics as directed. Do not consume alcohol while taking these medications. Please have a primary care doctor contact the medical records department to obtain culture results. Follow-up with a international marketing intern within the next 3-5 days for complaint of chest pain. Follow-up with her primary care doctor within the next 5-7 days for complaint of left-sided flank pain, and possible early urinary tract infection/kidney infection. Do not take metformin medication for the next 2 days, if patient is taking this medication. Drink 4-6 cups of water per day for the next week. If taking the oxycodone for pain, do not drive, consume alcohol, or make important decisions. Return to the emergency room right away with projectile vomiting, change in mental status, confusion, inability to tolerate liquid feeds, new, worsened or different symptoms not present on the initial emergency room evaluation. Prescriptions: levoFLOXacin [Levaquin] 750 mg PO QDAY #6 tablet Ibuprofen [Motrin] 600 mg PO Q8H PRN #30 tablet PRN Reason: Pain Acetaminophen [Non-Aspirin Extra Strength] 500 mg PO Q6HR PRN #30 tablet PRN Reason: Pain , Severe (7-10) Metoclopramide [Reglan] 10 mg PO QID PRN #30 tablet PRN Reason: Nausea Referrals: [facility] [place] [Provider Group] - 3-5 Days [facility] [Provider Group] - 3-5 Days [facility] [Provider Group] - 3-5 Days [facility] [Provider Group] - 3-5 Days Forms: Work/School Release Form(ED)
[2019-11-08 21:59] LABS: INR 1.14 (0.87-1.13)
--- NOTE | 2019-11-09 00:33 | Cat Scan Report ---
CT ABDOMEN AND PELVIS WITH IV CONTRAST INDICATION: cp htn left flank pain, rad to flank. pyelo. COMPARISON: CT 07/01/2019. TECHNIQUE: All CT scans at this facility use dose modulation, automated exposure control, iterative reconstructi on or weight based dosing, when appropriate, to reduce radiation dose to as low as reasonably achieva ble. FINDINGS: Lung Bases: No significant abnormality. Skeletal System: No acute abnormality. ABDOMEN: Liver: No significant abnormality. Gallbladder: Cholelithiasis is again noted. Bile Ducts: No significant abnormality. Pancreas: No significant abnormality. Spleen: No significant abnormality. Adrenals: No significant abnormality. Right Kidney: No significant abnormality. Left Kidney: No significant abnormality. Upper GI tract: No significant abnormality. Lymph Nodes: No significant adenopathy. Aorta: No significant abnormality. Additional Findings: No significant abnormality. PELVIS: Colon: No acute abnormality. Urinary Bladder and Distal Ureters: No significant abnormality. Appendix: Not visualized Lymph Nodes: No significant adenopathy. Additional Findings: None. IMPRESSION: 1. No acute process in the abdomen or pelvis. 2. Incidental findings, as above. Signer Name: Oren Shine MD Signed: 11/09/2019 12:28 AM Workstation Name: [id number]
[2019-11-09] MEDS ORDERED: SODIUM CHLORIDE 0.9% 500 ML 500 ML ONE (00:41)
[2019-11-09] MEDS ORDERED: SODIUM CHLORIDE 0.9% 500 ML IVPB IV ONE (00:43)
--- NOTE | 2019-11-09 00:53 | Cat Scan Report ---
CTA CHEST WITH IV CONTRAST INDICATION: cp htn left flank pain, rad to flank. TECHNIQUE: Axial CT images were obtained through the chest after injection of IV contrast. 3 plane MIP reconstru ctions were produced. All CT scans at this location are performed using CT dose reduction for ALARA b y means of automated exposure control. COMPARISON: None available. FINDINGS: Pulmonary Arteries: No pulmonary emboli. Thoracic Aorta: No acute abnormality. Heart: Normal. Lungs: No acute air space or interstitial disease. Pleura: No pleural effusion. No pneumothorax. Lymph Nodes: No significant adenopathy. Additional Findings: None. Upper Abdomen: No acute findings. Skeletal Structures: No significant osseous abnormality. IMPRESSION: 1. No CT evidence for pulmonary embolism. 2. No acute findings. Signer Name: Oren Shine MD Signed: 11/09/2019 12:49 AM Workstation Name: [id number]
[2019-11-09 02:41] LABS: Bilirubin,Urine NEG (Negative); Blood,Urine NEG (Negative); Color,Urine Straw (Yellow); Protein,Urine <15 mg/dL mg/dL (Negative); Urobilinogen,Urine < 2.0 mg/dL (<2.0)
[2019-11-09] MEDS ORDERED: levoFLOXacin 750 MG TAB PO ONE (03:08)
[2019-11-09 03:36] VITALS: BP 138/79
== END 2019-11-09 03:37 | disposition home or self-care (01) ==
LOC: ED 18:49
DX: R07.89 Other chest pain (principal); R10.12 Left upper quadrant pain; E66.01 Morbid (severe) obesity due to excess calories; Z87.898 Personal history of other specified conditions; Z90.89 Acquired absence of other organs; Z79.899 Other long term (current) drug therapy
CPT/HCPCS: 36415; 71045; 71275; 74177; 80048; 81001; 82550; 83735; 84484; 84702; 85025; 85379; 85610; 87076; 87086; 87186; 93005; 93010; 96374; 96375; 99285; J1200; J1885; J2270; J2765; J2930; J7040; Q9967

== ENCOUNTER 2019-11-13 17:41 | Emergency (ER) | payer SELFPAY ==
--- NOTE | 2019-11-13 19:41 | Event Note ---
ED Screening Note Date of service: 11/13/19 Time: 19:37 ED Screening Note: 49 y o with pmh of CHF presents cc of sob intermittently x 1 week also cc of extremity swelling This initial assessment/diagnostic orders/clinical plan/treatment(s) is/are subject to change based on patients health status, clinical progression and re- assessment by fellow clinical providers in the ED. Further treatment and workup at subsequent clinical providers discretion. Patient/guardian urged not to elope from the ED as their condition may be serious if not clinically assessed and managed. Initial orders include: labs,ekg, cxr main side eval
== END 2019-11-13 19:15 | disposition left against medical advice (07) ==
LOC: ED 17:41
DX: M54.9 Dorsalgia, unspecified (principal); R51 Headache; R42 Dizziness and giddiness; Z53.21 Procedure and treatment not carried out due to patient leaving prior to being seen by health care provider